=== PATIENT | female | born 1985 | race Caucasian/White ===

== ENCOUNTER 2018-08-19 18:27 | Emergency (ER) | payer SELFPAY | END 2018-08-19 20:54 | disposition home or self-care (01) | LOC: JERFT 18:27 ==

== ENCOUNTER 2018-08-22 18:30 | Inpatient (IN) | payer MEDICARE ==
--- NOTE | 2018-08-22 18:36 | PDOC ---
Rapid Medical Evaluation Time Seen by Provider: 08/22/18 18:35 Medical Evaluation: Allergies Allergy/AdvReac Type Severity Reaction Status Date / Time No Known Allergies Allergy Verified 08/19/18 18:44 08/22/18 18:35 I have performed a brief in-person evaluation of this patient. The patient presents with a chief complaint of: Wound check . She was seen in ED for R nipple discharge/infection, was given a Rx for clindamycin which she has been taking but she still c/o discharge and feels like the swelling is getting worse, redness is also spreading. She was unable to follow up with her OBGYN as recommended. NO fever/chills/vomiting Pertinent physical exam findings: AAO X 3 in NAD I have ordered the following: none The patient will proceed to the ED for further evaluation. 08/22/18 18:37
[2018-08-22] MEDS ORDERED: KETOROLAC TROMETHAMINE 30 MG/1 ML VIAL ONE (19:22)
[2018-08-22] MEDS ORDERED: KETOROLAC TROMETHAMINE 30 MG/1 ML VIAL IVPUSH ONE (19:23)
--- NOTE | 2018-08-22 19:30 | PDOC ---
History of Present Illness - General Chief Complaint: Wound Stated Complaint: F/U Time Seen by Provider: 08/22/18 18:35 History Source: Patient Exam Limitations: No Limitations - History of Present Illness Initial Comments: 08/22/18 19:24 Patient returned after being on clindamycin for 2 days for bilateral breast abscess. Was evaluated 2 days ago in this emergency department for a left-sided breast that spread to her right breast/nipple. States had a history of cystitis a few years ago after a nipple piercing which when she removed the hardware and was placed on antibiotics resolved completely. States onset of her left breast pain swelling and purulent drainage started 4 days ago, spread to the right breast 2 days ago where she was evaluated. States since that time has taken approximately 6 doses of clindamycin as prescribed but has a worsening pain, redness and discharge from both nipples. Denies recent trauma, denies any aggressive sexual activity, denies any recurrence of piercing. Has no history of immunosuppression and HIV testing negative one year ago. Timing/Duration: reports: getting worse Severity: Yes: moderate, severe Location: reports: other Respiratory Risk Factors: reports: no cause identified (bilateral area left and nipples) Past History - Travel Traveled outside of the country in the last 30 days: No Close contact w/someone who was outside of country & ill: No - Past Medical History Allergies/Adverse Reactions: Allergies Allergy/AdvReac Type Severity Reaction Status Date / Time No Known Allergies Allergy Verified 08/22/18 18:36 Home Medications: Ambulatory Orders Clindamycin [Cleocin -] 300 mg PO TID #30 capsule 08/19/18 COPD: No - Surgical History GI Surgery: No - Immunization History Immunization Up to Date: No - Suicide/Smoking/Psychosocial Hx Smoking History: Never smoked Have you smoked in the past 12 months: No Hx Alcohol Use: Yes Drug/Substance Use Hx: No Review of Systems - Review of Systems Able to Perform ROS?: Yes Is the patient limited Macedonian proficient: Yes Constitutional: Yes: Symptoms Reported, See HPI, Chills, Loss of Appetite, Malaise HEENTM: Yes: See HPI. No: Symptoms Reported Respiratory: Yes: See HPI. No: Symptoms reported, Cough Musculoskeletal: Yes: See HPI. No: Symptoms Reported Integumentary: Yes: Symptoms Reported, See HPI, Erythema, Lesions All Other Systems: Reviewed and Negative *Physical Exam - Vital Signs Last Vital Signs Temp Pulse Resp BP Pulse Ox 98.9 F 71 20 113/60 99 08/22/18 18:37 08/22/18 18:37 08/22/18 18:37 08/22/18 18:37 08/22/18 18:37 - Physical Exam General Appearance: Yes: Nourished, Appropriately Dressed, Apparent Distress, Moderate Distress, Severe Distress HEENT: positive: NATHANAEL, Normal ENT Inspection, TMs Normal, Pharynx Normal Neck: positive: Supple. negative: Tender, Lymphadenopathy (R), Lymphadenopathy (L) Respiratory/Chest: positive: Lungs Clear, Normal Breath Sounds, Other (left nipple tender with purulent drainage expressed from old piercing sites midpoint nipple with erythema around area LOC. Right breast has a 15 cm erythema with exquisite tenderness to nipple that is inverted. Has some orange peeling skin, and firmness primarily to the medial aspect upper and lower quadrants of right breast) Gastrointestinal/Abdominal: positive: Soft. negative: Tender Extremity: positive: Normal Capillary Refill, Normal Inspection, Normal Range of Motion Integumentary: positive: Erythema. 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 Case was discussed with , turned over Doug Acuna PA who will proceed for admission for IVAbx. Patient and boyfriend updated to plan, and provided Toradol IV for some pain relief *DC/Admit/Observation/Transfer Diagnosis at time of Disposition: Breast abscess - Discharge Dispostion Condition at time of disposition: Stable Decision to Admit order: No - Referrals - Patient Instructions - Post Discharge Activity
[2018-08-22] MEDS ORDERED: VANCOMYCIN 1 GM in D5W (PRE-DOCKED) 1,000 MG/250 ML IVPB ONE (19:42)
[2018-08-22 19:53] LABS: BASO % 0.7 % (0-2.0); EOS % 1.2 % (0-4.5); HEMATOCRIT 38.9 % (32.4-45.2); HEMOGLOBIN 12.8 GM/dL (10.7-15.3); LYMPH % 22.1 % (8-40); MCH 30.7 pg (25.7-33.7); MONO % 5.6 % (3.8-10.2); NEUT % 70.4 % (42.8-82.8); RBC 4.18 M/mm3 (3.60-5.2); RDW 12.9 % (11.6-15.6); WHITE BLOOD COUNT 13.3 K/mm3 (4.0-10.0)
[2018-08-22 20:13] LABS: URINE APPEARANCE CLEAR; URINE BILIRUBIN NEGATIVE (NEGATIVE); URINE COLOR YELLOW; URINE GLUCOSE (UA) NEGATIVE (NEGATIVE); URINE KETONE NEGATIVE (NEGATIVE); URINE LEUK ESTERASE NEGATIVE (NEGATIVE); URINE NITRITE NEGATIVE (NEGATIVE); URINE PROTEIN NEGATIVE (NEGATIVE); URINE UROBILINOGEN 0.2 mg/dL (0.2-1.0)
[2018-08-22 20:18] LABS: ALBUMIN 4.1 g/dl (3.4-5.0); BILIRUBIN,TOTAL 0.2 mg/dL (0.2-1); CREATININE 0.7 mg/dL (0.55-1.3); TOT PROT 7.1 g/dl (6.4-8.2)
--- NOTE | 2018-08-22 20:20 | PDOC ---
*Physical Exam - Vital Signs Last Vital Signs Temp Pulse Resp BP Pulse Ox 98.9 F 71 20 113/60 99 08/22/18 18:37 08/22/18 18:37 08/22/18 18:37 08/22/18 18:37 08/22/18 18:37 - Physical Exam Comments: R breast with induration and swelling around nipple with erythema and nipple; induration measures approximately 4x4 cm; no obvious fluctuance site noted; no drainage noted; R nipple is inverted L breast nipple with around 2x2 cm area of induration, no erythema noted, no fluctuance noted, L nipple is not inverted 08/22/18 20:15 General Appearance: No: Apparent Distress Respiratory/Chest: positive: Lungs Clear, Normal Breath Sounds. negative: Respiratory Distress Gastrointestinal/Abdominal: positive: Normal Bowel Sounds, Soft. negative: Tender, Distended, Guarding, Rebound Neurologic: positive: Alert, Normal Mood/Affect ED Treatment Course - LABORATORY CBC & Chemistry Diagram: 08/22/18 19:25 08/22/18 19:15 - ADDITIONAL ORDERS Additional order review: 08/22/18 19:25 RBC 4.18 MCV 93.0 MCHC 33.0 RDW 12.9 MPV 12.0 H Neutrophils % 70.4 Lymphocytes % 22.1 Monocytes % 5.6 Eosinophils % 1.2 Basophils % 0.7 - Medications Given in the ED: ED Medications Discontinued Medications Generic Name Dose Route Start Last Admin Trade Name Freq PRN Reason Stop Dose Admin Ketorolac Tromethamine 30 mg 08/22/18 19:23 08/22/18 19:43 Toradol Injection - IVPUSH 08/22/18 19:24 30 mg ONCE ONE Administration Medical Decision Making - Medical Decision Making Patient signed out to me by ANDIE Wylie 32 y/o F with no sig pmh presents with L nipple discharge x 1 week and R breast swelling and pain from 4 days ago. Patient was seen here 3 days ago, diagnosed with B/L mastitis and discharged on Clindamycin. Patient returned to ED as states the swelling of R breast and discharge from L nipple getting worse despite use of antibiotics. Mentions having R breast piercing around 10 years ago and developing something similar; her piercing was removed at the time and states her R nipple has been inverted since her 20s. Patient mentions smoking marijuana and was former smoker (quit 4 years ago; started smoking age 13 and could smoke up to 1/2 ppd). Denies fever, sob, cp. Concern for B/L breast abscess Labs, Vanc, blood culture; unable to collect wound culture at this time as no drainage was expressed from nipple B/L breast ultrasound To admit 08/22/18 20:16 Spoke to radiologist, Dr. Hauser, who confirms patient has B/L breast abscesses (around 3-4 cm fluid collection in both breasts noted) Hospitalist paged for admission 08/22/18 20:51 *DC/Admit/Observation/Transfer Diagnosis at time of Disposition: Breast abscess - Discharge Dispostion Condition at time of disposition: Stable Decision to Admit order: Yes - Referrals - Patient Instructions - Post Discharge Activity
[2018-08-22] MEDS ORDERED: VANCOMYCIN 1 GRAM (PRE-DOCKED) 1,000 MG/250 ML BAG IVPB ONE (20:46)
[2018-08-22 21:33] LABS: PLATELET COUNT 233 K/MM3 (134-434); PLATELET ESTIMATE ADEQUATE
--- NOTE | 2018-08-22 21:41 | PN ---
Teaching Attending Note Name of Resident: Emerson Pires ATTENDING PHYSICIAN STATEMENT I saw and evaluated the patient. I reviewed the resident's note and discussed the case with the resident. I agree with the resident's findings and plan as documented. SUBJECTIVE: Patient is a 32 year old woman with no significant PMH who returns to the ER after being on clindamycin for 2 days for bilateral breast abscess. Was evaluated on 08/19/18 in the ER for a left-sided breast pain and discharge that spread to her right breast/nipple. States had a nipple piercing which has sinc been removed. States onset of her left breast pain swelling and purulent drainage started 4 days ago, spread to the right breast 2 days ago where she was evaluated. States since that time has taken approximately 6 doses of clindamycin as prescribed but has a worsening pain, redness and discharge from both nipples. Denies recent trauma, denies any aggressive sexual activity, denies any recurrence of piercing. Has no history of immunosuppression and HIV testing negative one year ago. She denies any biting to the nipples during sexual activity. Patient does note she purchased a new bra from [employer] last week, which she has been wearing since before her presentation on 08/19/18. LMP was about 10 days ago and finished on 08/17. She is an exsmoker and use marijuana daily. Denies using anyother illicit drug. The patient denies chest pain, shortness of breath, headache and dizziness. Denies fever, chills, nausea, vomiting, diarrhea and constipation. Denies dysuria, frequency, urgency and hematuria. OBJECTIVE: Alert Vital Signs Period Temp Pulse Resp BP Sys/Meraz Pulse Ox Last 24 Hr 98.4 F-98.9 F 71-74 20-20 113-128/60-80 99 HEENT: No Jaundice, eye redness or discharge, PERRLA, EOMI. Normocephalic, atraumatic. External ears are normal and hearing is grossly intact. No nasal discharge. Neck: Supple, nontender. No palpable adenopathy or thyromegaly. No JVD Chest: Good effort. Bilateral luca nipple erythema/induration and fluctuance and tenderness. Clear to auscultation and percussion. Heart: Regular. No S3, rub or murmur Abdomen: Not distended, soft, nontender and no HSM. No rebound or guarding. Normal bowel sounds. Ext: Peripheral pulses intact. No leg edema. Skin: Warm and dry. No petechiae, rash or ecchymosis. Neuro: Alert. Oriented x3. CN 2-12 grossly intact. Sensation grossly intact in all four extremities and DTR are symmetric. Psych: Appropriate mood and affect. Good insight. Current Medications Generic Name Dose Route Start Last Admin Trade Name Freq PRN Reason Stop Dose Admin Sodium Chloride 1,000 mls @ 75 mls/hr 08/22/18 22:30 Normal Saline - IV ASDIR KORTNEY Vancomycin HCl 1,000 mg 08/23/18 03:00 Vancomycin (Pre-Docked) IVPB 08/23/18 03:01 ONCE ONE Protocol Home Medications Medication Instructions Recorded Clindamycin [Cleocin -] 300 mg PO TID #30 capsule 08/19/18 Abnormal Lab Results 08/22/18 08/22/18 19:15 19:25 WBC 13.3 H MPV 12.0 H Absolute Neuts (auto) 9.4 H Random Glucose 113 H AST 10 L ASSESSMENT AND PLAN: 1. Bilateral breast abscess and cellulitis - No obvious risk factor. Preliminary report of ultrasound shows bilateral breast abscesses. Blood cultures being done and will give IV vancomycin and consult surgery. Will send for urine toxicology screen and swab nipple discharge for culture. Give IV NS and liberal oral fluids. NPO after midnight. Counseled to stop smoking marijuana. 2. Overweight Counseled on the risks associated with being overweight. Will provide patient all the necessary assistance, counseling and positive reinforcement to facilitate weight loss. Consult distribution driver. 3. DVT prophylaxis - SCD for now and after Procedure use Lovenox 40 mg SQ q 24 hours. 4. Advance directives - Full code
[2018-08-22] MEDS ORDERED: HEPARIN NA (PORCINE) 5,000 UNITS/ML 1ML VIAL SQ ONE (22:27)
[2018-08-22 22:39] VITALS: BMI 28.8
--- NOTE | 2018-08-22 23:03 | HP ---
CHIEF COMPLAINT: worsening breast swelling, tenderness and erythema PCP: None HISTORY OF PRESENT ILLNESS: Pt. is a 32 y.o. F w/ no PMHx. presents with bilateral breast tenderness and swelling. Pt. states that the left breast swelling and tenderness started on Sunday, however the right breast erythema, swelling and tenderness started about 1 week go. Pt. was recently seen in the ED on Sunday for this problem and was discharged on a 10 day course of Clindamycin with instructions to follow up with her ADMINISTRATIVE TECHNICIAN. Pt. does not have an ADMINISTRATIVE TECHNICIAN, and states she has never had a mammogram. Pt. states that her right nipple has been inverted since her early 20s. She got a nipple piercing in an attempt to jhonathan the nipple, however developed an infection and took out the piercing. in the distant past. Pt. states that since starting the Clindamycin the tenderness, erythema and swelling has worsened. Pt. endorses decreased appetite for a week, Lightheadedness and headache starting today. Pt. states that sometimes there is white/yellowish discharge from the left nipple. Pt. denies any trauma to her breast, poor hygiene with bras, any aggressive activity sexual or otherwise with her breasts or any sick contacts. Pt. denies any fever, chills, chest pain other than from her breasts, nausea, vomiting, diarrhea or rashes anywhere. Pt. states her last HIV test last year was negative and that she is monogamous with her boyfriend who was present in the room throughout the encounter. ER course was notable for: (1)Vancomycin, BCx., WCx.-ordered (2)UTox., ID Consult, Surgery Consult (3)Toradol 30mg, Breast U.S. Recent Travel: No PAST MEDICAL HISTORY: None PAST SURGICAL HISTORY: None Social History: Smokin/ PPD - 15 years; Quit 3 years ago Alcohol: Drinks 1 "big bottle" every weekend with boyfriend Drugs: Marijuana daily x 10+ years, denies other drugs Family History: Denies any family history of breast cancer Allergies No Known Allergies Allergy (Verified 08/22/18 18:36) HOME MEDICATIONS: Home Medications Medication Instructions Recorded Clindamycin [Cleocin -] 300 mg PO TID #30 capsule 08/19/18 REVIEW OF SYSTEMS As Above PHYSICAL EXAMINATION Vital Signs - 24 hr 08/22/18 18:37 Temperature 98.9 F Pulse Rate 71 Respiratory 20 Rate Blood Pressure 113/60 O2 Sat by Pulse 99 Oximetry (%) GENERAL: Awake, alert, and fully oriented, in mild distress. HEAD: Normal with no signs of trauma. EYES: Extraocular movements intact, sclera anicteric, conjunctiva clear. EARS, NOSE, THROAT: Ears normal, nares patent, oropharynx clear without exudates. Dry mucous membranes. LUNGS: Breath sounds equal, clear to auscultation bilaterally. No wheezes, and no crackles. No accessory muscle use. BREAST: R. nipple inverted, fluctuance, tenderness, no discharge, erythema ~5cm x 3 cm; L. nipple enlarged w/ scant discharge, fluctuance, tenderness, minimal erythema compared to R. HEART: Regular rate and rhythm, normal S1 and S2 without murmur ABDOMEN: Soft, nontender, not distended, normoactive bowel sounds, no guarding, no rebound, no masses. No hepatomegaly or splenomegaly. UPPER EXTREMITIES: 2+ radial pulses, warm, well-perfused. No cyanosis. No clubbing. No peripheral edema. LOWER EXTREMITIES: Warm, well-perfused. No peripheral edema. NEUROLOGICAL: Cranial nerves II-XII intact. Normal speech. Gait not assessed. PSYCHIATRIC: Cooperative. Good eye contact. Anxious SKIN: Warm, dry, normal turgor, no rashes or lesions noted Laboratory Results - last 24 hr 08/22/18 08/22/18 08/22/18 19:15 19:16 19:25 WBC 13.3 H RBC 4.18 Hgb 12.8 Hct 38.9 MCV 93.0 MCH 30.7 MCHC 33.0 RDW 12.9 Plt Count 233 MPV 12.0 H Absolute Neuts (auto) 9.4 H Neutrophils % 70.4 Lymphocytes % 22.1 Monocytes % 5.6 Eosinophils % 1.2 Basophils % 0.7 Nucleated RBC % 0 Platelet Estimate Adequate Platelet Comment Large platelets Sodium 137 Potassium 4.0 Chloride 105 Carbon Dioxide 24 Anion Gap 8 BUN 10 Creatinine 0.7 Est GFR (CKD-EPI)AfAm 131.94 Est GFR (CKD-EPI)NonAf 113.84 Random Glucose 113 H Calcium 9.0 Total Bilirubin 0.2 AST 10 L ALT 23 Alkaline Phosphatase 75 Total Protein 7.1 Albumin 4.1 Urine Color Urine Appearance Urine pH Ur Specific [place] Urine Protein Urine Glucose (UA) Urine Ketones Urine Blood Urine Nitrite Urine Bilirubin Urine Urobilinogen Ur Leukocyte Esterase Urine HCG, Qual Negative 08/22/18 19:29 WBC RBC Hgb Hct MCV MCH MCHC RDW Plt Count MPV Absolute Neuts (auto) Neutrophils % Lymphocytes % Monocytes % Eosinophils % Basophils % Nucleated RBC % Platelet Estimate Platelet Comment Sodium Potassium Chloride Carbon Dioxide Anion Gap BUN Creatinine Est GFR (CKD-EPI)AfAm Est GFR (CKD-EPI)NonAf Random Glucose Calcium Total Bilirubin AST ALT Alkaline Phosphatase Total Protein Albumin Urine Color Yellow Urine Appearance Clear Urine pH 5.0 Ur Specific [place] 1.027 Urine Protein Negative Urine Glucose (UA) Negative Urine Ketones Negative Urine Blood Negative Urine Nitrite Negative Urine Bilirubin Negative Urine Urobilinogen 0.2 Ur Leukocyte Esterase Negative Urine HCG, Qual ASSESSMENT/PLAN: Pt. is a 32 y.o. F w/ no PMHx. presents with bilateral breast tenderness and swelling. #Bilateral Mastitis with suspected bilateral abscesses c/w Vancomycin, per uptodate Pt. should receive 1g Q8H, and then have dose adjusted to maintain trough concentrations of 10-15. Will c/w Clindamycin at this time b/c of retracted nipple (though it was present before this process began) ID Consult (Dr. Murphy) appreciated Surgery Consult (Dr. Castillo) appreciated f/u Utox--> extremely rare to have b/l breast abscesses in Pt. not know to be IVDA. If negative my be due to ductal obstruction. However it is unusual that this is the first presentation. [place] structural abnormality causing nipple inversion supports obstructive process. Would benefit from outpatient f/u with ADMINISTRATIVE TECHNICIAN and mammogram. #FEN NS @ 75ml/Hr monitor electrolytes and replete as needed Regular Diet #DVT Ppx. Early ambulation Will give ONE does of Heparin in case of possible intervention in AM. Visit type - Emergency Visit Emergency Visit: Yes ED Registration Date: 08/22/18 Care time: The patient presented to the Emergency Department on the above date and was hospitalized for further evaluation of their emergent condition. - New Patient This patient is new to me today: Yes Date on this admission: 08/23/18 - Critical Care Critical Care patient: No
[2018-08-22] MEDS: CLINDAMYCIN HCL 150 MG CAPSULE (FP) PO SCH (23:33)
[2018-08-23 00:07] LABS: COCAINE, UR NEGATIVE ng/ml (CUTOFF=300); METHADONE, UR NEGATIVE ng/ml (CUTOFF=300); PHENCYCLIDINE,URINE NEGATIVE ng/ml (CUTOFF=25); URINE AMPHETAMINES NEGATIVE ng/ml (CUTOFF=500); URINE BARBITURATES NEGATIVE ng/ml (CUTOFF=200); URINE BENZODIAZEPINES NEGATIVE ng/ml (CUTOFF=200)
[2018-08-23 00:08] LABS: OPIATES, URI NEGATIVE ng/ml (CUTOFF=300)
[2018-08-23] MEDS ORDERED: VANCOMYCIN 1 GM in D5W (PRE-DOCKED) 1,000 MG/250 ML IVPB ONE (03:00)
[2018-08-23] MEDS: SODIUM CHLORIDE 1,000 ML IV SCH (04:07)
[2018-08-23] MEDS ORDERED: MORPHINE SULFATE 2 MG/ML VIAL SQ ONE (04:30)
[2018-08-23] MEDS: CLINDAMYCIN HCL 150 MG CAPSULE (FP) PO SCH (06:24)
[2018-08-23 07:19] LABS: BASO % 0.8 % (0-2.0); EOS % 2.1 % (0-4.5); HEMATOCRIT 36.6 % (32.4-45.2); HEMOGLOBIN 12.1 GM/dL (10.7-15.3); LYMPH % 24.5 % (8-40); MCH 30.8 pg (25.7-33.7); MEAN CELL VOLUME 93.4 fl (80-96); MEAN PLT VOLUME 11.5 fl (7.5-11.1); MONO % 7.3 % (3.8-10.2); NEUT % 65.3 % (42.8-82.8); PLATELET COUNT 220 K/MM3 (134-434); RBC 3.92 M/mm3 (3.60-5.2); RDW 12.9 % (11.6-15.6); WHITE BLOOD COUNT 9.6 K/mm3 (4.0-10.0)
[2018-08-23 07:41] LABS: INR 1.11 (0.83-1.09); PROTHROMBIN TIME (PATIENT) 13.1 SEC (9.7-13.0)
[2018-08-23 08:30] LABS: CALCIUM 8.5 mg/dL (8.5-10.1); CREATININE 0.6 mg/dL (0.55-1.3); MAGNESIUM 2.1 mg/dL (1.8-2.4); PHOSPHOROUS 3.7 mg/dL (2.5-4.9); POTASSIUM 4.2 mmol/L (3.5-5.1)
[2018-08-23] MEDS ORDERED: SODIUM CHLORIDE 100 ML IVPB ONE ×3 (10:13→20:04)
[2018-08-23] MEDS ORDERED: AMPICILLIN NA/SULBACTAM NA 1.5 GM VIAL ONE ×3 (10:13→20:04)
[2018-08-23] MEDS: AMPICILLIN NA/SULBACTAM NA 1.5 GM in SODIUM CHLORIDE 100 ML IVPB SCH ×3 (10:16→20:10)
--- NOTE | 2018-08-23 10:38 | CON.ID ---
Consult Consult Specialty:: infectious disease Referred by:: hospitalist Reason for Consultation:: bilateral breast abscess - History of Present Illness Chief Complaint: 32 yo female other arias healthy developed bilateral breast pain last week History of Present Illness: Seen in ED at [facility] with drainage from her nipple- reports she had bilateral breast pain left greater then right has inverted nipple right breast (chronic) started clindamycin 300 tid no improvement and came to ED breast ultrasound with bilateral breast abscess below areola no fevers no IVDU not not nursing no trauma nipple piercing in 10 years ago had an infection that resolved HIV negative one year ago- agreeable to retesting reports new "tight "bra 2 weeks ago - History Source History Provided By: Patient Limitations to Obtaining History: No Limitations - Past Medical History Reproductive: Yes: PID (in her mid 20s, mastitis secondary to nipple piercing 10 years ago) ...LMP: 08/17/18 ...: No - Alcohol/Substance Use Hx Alcohol Use: Yes History of Substance Use: reports: None - Smoking History Smoking history: Never smoked Have you smoked in the past 12 months: No If you are a former smoker, when did you quit?: 2015 - Social History Usual Living Arrangement: Alone ADL: Independent Occupation: works for [employer] of : [facility] History of Recent Travel: No Home Medications - Allergies Allergies/Adverse Reactions: Allergies Allergy/AdvReac Type Severity Reaction Status Date / Time No Known Allergies Allergy Verified 08/22/18 18:36 - Home Medications Home Medications: Ambulatory Orders Clindamycin [Cleocin -] 300 mg PO TID #30 capsule 08/19/18 Family Disease History - Family Disease History Family History: Denies (no hstory of breast cancer) Review of Systems - Review of Systems Constitutional: reports: No Symptoms Eyes: reports: No Symptoms HENT: reports: No Symptoms Neck: reports: No Symptoms Cardiovascular: reports: No Symptoms Respiratory: reports: No Symptoms Gastrointestinal: reports: No Symptoms Genitourinary: reports: No Symptoms Breasts: reports: See HPI Physical Exam Vital Signs: Vital Signs Temperature 98.6 F 08/23/18 06:00 Pulse Rate 64 08/23/18 06:00 Respiratory Rate 20 08/23/18 06:00 Blood Pressure 103/59 L 08/23/18 06:00 O2 Sat by Pulse Oximetry (%) 99 08/22/18 18:37 Constitutional: Yes: Well Nourished, No Distress, Calm Eyes: Yes: Conjunctiva Clear HENT: Yes: Atraumatic, Normocephalic. No: Thrush, Tonsillar Exudate Neck: Yes: Supple, Trachea Midline Cardiovascular: Yes: Regular Rate and Rhythm. No: Murmur Respiratory: Yes: Regular, CTA Bilaterally Gastrointestinal: Yes: Normal Bowel Sounds, Soft. No: Tenderness ...Rectal Exam: Yes: Deferred Renal/: No: CVA Tenderness - Left, CVA Tenderness - Right Breast(s): Yes: Nipple Inversion (right, erythema and tenderness right breast with palpable mass below areola, left breast no erythema, +induration, + purulent discharge from nipple) Edema: No Psychiatric: Yes: Alert, Oriented Labs: CBC, BMP 08/23/18 06:36 08/23/18 06:39 Imaging - Results Ultrasound: Report Reviewed (bilateral abscesses below the areola) Problem List - Problems (1) Breast abscess Code(s): N61.1 - ABSCESS OF THE BREAST AND NIPPLE Assessment/Plan bilateral breast abscess left breast discharge cultures d/w dr dietrich- he will be in to see patient vancomycin/unasyn, needs cultures sent when abscess is drained hiv ordered (she consents) d/w hospitalist service
[2018-08-23] MEDS ORDERED: LIDOCAINE HCL 1%, 10 MG/ML (50 mL VIAL) SQ ONE (14:27)
--- NOTE | 2018-08-23 14:37 | CONSULT ---
Consult Consult Specialty:: Surgery Reason for Consultation:: Bilateral breast abscess. - History of Present Illness Chief Complaint: C/P pain in both breasts for one week, right more than left. She is not lactating. She has had an abscess on her right breast about 10 years ago. - History Source History Provided By: Patient - Past Medical History ...LMP: 08/17/18 ...: No - Alcohol/Substance Use Hx Alcohol Use: Yes History of Substance Use: reports: None - Smoking History Smoking history: Never smoked Have you smoked in the past 12 months: No If you are a former smoker, when did you quit?: 2014 - Social History Usual Living Arrangement: Alone ADL: Independent Occupation: works for [employer] History of Recent Travel: No Home Medications - Allergies Allergies/Adverse Reactions: Allergies Allergy/AdvReac Type Severity Reaction Status Date / Time No Known Allergies Allergy Verified 08/22/18 18:36 - Home Medications Home Medications: Ambulatory Orders Clindamycin [Cleocin -] 300 mg PO TID #30 capsule 08/19/18 Physical Exam Vital Signs: Vital Signs Temperature 98.6 F 08/23/18 06:00 Pulse Rate 64 08/23/18 06:00 Respiratory Rate 20 08/23/18 06:00 Blood Pressure 103/59 L 08/23/18 06:00 O2 Sat by Pulse Oximetry (%) 99 08/22/18 18:37 Breast(s): Yes: Other (Both breasts are tender at the center, with induration , pain and swelling in the central portion of the breasts , under the nipple areola complex. On the left side it is about 5 cms in daimeter , with some purulent exudate from the nipple. On her right breast , there is some necrosis of the skin over the medial side of the areola, and swelling and induration extends to the upper , inner quadrant. There is no axillary lymphadenopathy.) Labs: CBC, BMP 08/23/18 06:36 08/23/18 06:39 Imaging - Results Ultrasound: Report Reviewed, Image Reviewed Problem List - Problems (1) Breast abscess Code(s): N61.1 - ABSCESS OF THE BREAST AND NIPPLE (2) Nipple discharge Code(s): N64.52 - NIPPLE DISCHARGE Assessment/Plan Bilateral breast abscess, with drainage from nipple, Plan : Aspiration / Incision and drainage of abscess, on both sides. Patient is informed. Antibiotics. Pus for culture and antibiotic sensitivity. Patient is explained. Consent obtained.
--- NOTE | 2018-08-23 15:28 | PROC ---
Procedure Note Procedure: Procedure note: Procedure : Bilateral incision and drainage of breast abscesses done. Anesthesia : Local with 1 % lidocaine in each breast Procedure : patient was explained the procedure. 5ml. of 1 % lidocaine was infiltrated into the skin and subcutaneous tissue , in each breast , beneath ate areola of each breast , at the point of maximum tenderness. Left breast : A no. 18 gauge needle was introduced on the lateral aspect of the left breast , at the area of maximum tenderness and induration. About 2-3 mo of purulent material was aspirated. With a no. 11 blade , a skin incision of about 1-2 cms was made , towards the cavity of pus. The wound and cavity was irrigated ans pcaked with 2x2 gauze and dressed. The pus was sent for cultue and antibiotic sensitivity. Right breast: 1 % lidocaine was infiltrates on the medial aspect of the areola , at the site of maximum induration and tenderness. the nipple on the right side is inverted due to the edema and swelling. Again a no. 18 gauge needle was introduced and about 8 ml of pus was aspirated. With a no. 11 blade Bard Mateus blade a 2-3 cm incision was made on the medial aspect of the areola, the cavity was enterd , pus and debris evacuated , cavity irrigated with normal saline , and packed with 2x2 gauze. pus was again sent for culture and antibiotic sensitivity. Dressing applied. patient tolerated the procedure.
[2018-08-23] MEDS ORDERED: HYDROmorphone HCl 2 MG/ML VIAL IM PRN (15:30)
[2018-08-23] MEDS: VANCOMYCIN 1 GRAM (PRE-DOCKED) 1,000 MG/250 ML BAG IVPB SCH (15:52)
--- NOTE | 2018-08-23 16:23 | PN ---
Physical Exam: SUBJECTIVE: Patient seen and examined at bedside. Complains of persistent b/l breast tenderness but no drainage noted. Denies cp, sob, abd pain, urinary/ bowel symptoms. OBJECTIVE: Vital Signs Period Temp Pulse Resp BP Sys/Meraz Pulse Ox Last 24 Hr 98.4 F-98.9 F 64-74 20-20 103-128/59-80 99 GENERAL: Well-appearing female. resting comfortably in bed. AAOx3. NAD. HEENT: AT/NC. EOMI. Moist mucus membranes. NECK: Trachea midline, full range of motion, supple. LUNGS: CTA B/L. No wheezes, rhonchi, rales noted. BREAST: Right- inverted nipple, indurated periareolar region with erythema, tender to touch, no expressible drainage from nipple, area of redness demarcated around nipple, appears to be improved from demarcation. Left- area of induration palpated around areola region, no expressible drainage from nipple , no erythema noted. HEART: Regular rate and rhythm, S1, S2 without murmur, rub or gallop. ABDOMEN: Soft, NT/ND. +BS EXTREMITIES: 2+ pulses, warm, well-perfused, no edema. CBCD WBC 9.6 K/mm3 (4.0-10.0) 08/23/18 06:36 RBC 3.92 M/mm3 (3.60-5.2) 08/23/18 06:36 Hgb 12.1 GM/dL (10.7-15.3) 08/23/18 06:36 Hct 36.6 % (32.4-45.2) 08/23/18 06:36 MCV 93.4 fl (80-96) 08/23/18 06:36 MCHC 33.0 g/dl (32.0-36.0) 08/23/18 06:36 RDW 12.9 % (11.6-15.6) 08/23/18 06:36 Plt Count 220 K/MM3 (134-434) 08/23/18 06:36 MPV 11.5 fl (7.5-11.1) H 08/23/18 06:36 CMP Sodium 138 mmol/L (136-145) 08/23/18 06:39 Potassium 4.2 mmol/L (3.5-5.1) 08/23/18 06:39 Chloride 108 mmol/L (98-107) H 08/23/18 06:39 Carbon Dioxide 22 mmol/L (21-32) 08/23/18 06:39 Anion Gap 9 MMOL/L (8-16) 08/23/18 06:39 BUN 10 mg/dL (7-18) 08/23/18 06:39 Creatinine 0.6 mg/dL (0.55-1.3) 08/23/18 06:39 Calcium 8.5 mg/dL (8.5-10.1) 08/23/18 06:39 Total Bilirubin 0.2 mg/dL (0.2-1) 08/22/18 19:15 AST 10 U/L (15-37) L 08/22/18 19:15 ALT 23 U/L (13-61) 08/22/18 19:15 Alkaline Phosphatase 75 U/L (45-117) 08/22/18 19:15 Total Protein 7.1 g/dl (6.4-8.2) 08/22/18 19:15 Albumin 4.1 g/dl (3.4-5.0) 08/22/18 19:15 Active Medications Hydromorphone HCl (Dilaudid Vial -) 2 mg IM Q8H PRN PRN Reason: PAIN LEVEL 6-10 Last Admin: 08/23/18 15:50 Dose: 2 mg Sodium Chloride (Normal Saline -) 1,000 mls @ 75 mls/hr IV ASDIR KORTNEY Last Admin: 08/23/18 04:07 Dose: 75 mls/hr Ampicillin Sodium/Sulbactam (Sodium 1.5 gm/ Sodium Chloride) 100 mls @ 200 mls/ hr IVPB Q6H-IV KORTNEY Last Admin: 08/23/18 15:52 Dose: 200 mls/hr Vancomycin HCl (Vancomycin (Pre-Docked)) 1,000 mg in 250 mls @ 166.667 mls/hr IVPB Q12H KORTNEY; Protocol Last Admin: 08/23/18 15:52 Dose: 166.667 mls/hr IMAGING: * Breast U/S: Complex fluid collection within retreareolar portions of both breasts suspicious for abscesses, in light of clinical hx of purulent nipple discharge. BI-RADS 4: Suspicious finding- biopsy should be considered. ASSESSMENT/PLAN: Pt is a 32 y.o. F w/ no PMHx. presents with bilateral breast tenderness and swelling found to have b/l breast abscesses. #Bilateral Mastitis with Abscesses and Cellulitis -Breast U/S noted above; remarkable for bilateral complex collections/abscesses -s/p I and D by Surgery, Surgical Cx pending -Leukocytosis resolving -Seen by ID - Continue Unasyn/Vancomycin pending Cx results -IV Fluids -Analagesia #DVT Ppx - Heparin SQ Dispo -cont to monitor on med-surg -full code Visit type - Emergency Visit Emergency Visit: Yes ED Registration Date: 08/22/18 Care time: The patient presented to the Emergency Department on the above date and was hospitalized for further evaluation of their emergent condition. - New Patient This patient is new to me today: Yes Date on this admission: 08/23/18 - Critical Care Critical Care patient: No
--- NOTE | 2018-08-23 17:27 | PN ---
Teaching Attending Note Name of Resident: Ofelia Gallardo (\) ATTENDING PHYSICIAN STATEMENT I saw and evaluated the patient. I reviewed the resident's note and discussed the case with the resident. I agree with the resident's findings and plan as documented. SUBJECTIVE: Complains of bilateral breast pain/swelling/tenderness. Erythema R breast, discharge L nipple. No fever/chills. No nausea/vomiting. OBJECTIVE: Afebrile, Hemodynamically Stable. Last Vital Signs Temp Pulse Resp BP Pulse Ox 98.6 F 64 20 103/59 L 99 08/23/18 06:00 08/23/18 06:00 08/23/18 06:00 08/23/18 06:00 08/22/18 18:37 HEENT- Atraumatic, Normocephalic. Heart - S1, S2, RRR Lungs - clear to auscultation Breast (examined with medical team as planning rn) - R side tender/erythematous, fluctuant luca-areolar area, L side also swollen and tedner with everted nipple , some discharge. Abdomen - Soft, non-tender. Bowel Sounds normal. Extremities - no edema, no calf tenderness. Laboratory Results - last 24 hr 08/22/18 08/22/18 08/22/18 19:15 19:16 19:25 WBC 13.3 H RBC 4.18 Hgb 12.8 Hct 38.9 MCV 93.0 MCH 30.7 MCHC 33.0 RDW 12.9 Plt Count 233 MPV 12.0 H Absolute Neuts (auto) 9.4 H Neutrophils % 70.4 Lymphocytes % 22.1 Monocytes % 5.6 Eosinophils % 1.2 Basophils % 0.7 Nucleated RBC % 0 Platelet Estimate Adequate Platelet Comment Large platelets PT with INR INR Sodium 137 Potassium 4.0 Chloride 105 Carbon Dioxide 24 Anion Gap 8 BUN 10 Creatinine 0.7 Est GFR (CKD-EPI)AfAm 131.94 Est GFR (CKD-EPI)NonAf 113.84 Random Glucose 113 H Calcium 9.0 Phosphorus Magnesium Total Bilirubin 0.2 AST 10 L ALT 23 Alkaline Phosphatase 75 Total Protein 7.1 Albumin 4.1 Urine Color Urine Appearance Urine pH Ur Specific Sparks Urine Protein Urine Glucose (UA) Urine Ketones Urine Blood Urine Nitrite Urine Bilirubin Urine Urobilinogen Ur Leukocyte Esterase Urine HCG, Qual Negative Opiates Screen Methadone Screen Barbiturate Screen Phencyclidine Screen Ur Amphetamines Screen MDMA (Ecstasy) Screen Benzodiazepines Screen Cocaine Screen U Marijuana (THC) Screen Blood Type Antibody Screen 08/22/18 08/22/18 08/23/18 19:29 23:37 06:36 WBC 9.6 RBC 3.92 Hgb 12.1 Hct 36.6 MCV 93.4 MCH 30.8 MCHC 33.0 RDW 12.9 Plt Count 220 MPV 11.5 H Absolute Neuts (auto) 6.3 Neutrophils % 65.3 Lymphocytes % 24.5 Monocytes % 7.3 Eosinophils % 2.1 Basophils % 0.8 Nucleated RBC % 0 Platelet Estimate Platelet Comment PT with INR INR Sodium Potassium Chloride Carbon Dioxide Anion Gap BUN Creatinine Est GFR (CKD-EPI)AfAm Est GFR (CKD-EPI)NonAf Random Glucose Calcium Phosphorus Magnesium Total Bilirubin AST ALT Alkaline Phosphatase Total Protein Albumin Urine Color Yellow Urine Appearance Clear Urine pH 5.0 Ur Specific Sparks 1.027 Urine Protein Negative Urine Glucose (UA) Negative Urine Ketones Negative Urine Blood Negative Urine Nitrite Negative Urine Bilirubin Negative Urine Urobilinogen 0.2 Ur Leukocyte Esterase Negative Urine HCG, Qual Opiates Screen Negative Methadone Screen Negative Barbiturate Screen Negative Phencyclidine Screen Negative Ur Amphetamines Screen Negative MDMA (Ecstasy) Screen Negative Benzodiazepines Screen Negative Cocaine Screen Negative U Marijuana (THC) Screen Positive A* Blood Type Antibody Screen 08/23/18 08/23/18 08/23/18 06:36 06:36 06:39 WBC RBC Hgb Hct MCV MCH MCHC RDW Plt Count MPV Absolute Neuts (auto) Neutrophils % Lymphocytes % Monocytes % Eosinophils % Basophils % Nucleated RBC % Platelet Estimate Platelet Comment PT with INR 13.10 H INR 1.11 H Sodium 138 Potassium 4.2 Chloride 108 H Carbon Dioxide 22 Anion Gap 9 BUN 10 Creatinine 0.6 Est GFR (CKD-EPI)AfAm 138.80 Est GFR (CKD-EPI)NonAf 119.76 Random Glucose 98 Calcium 8.5 Phosphorus 3.7 Magnesium 2.1 Total Bilirubin AST ALT Alkaline Phosphatase Total Protein Albumin Urine Color Urine Appearance Urine pH Ur Specific Sparks Urine Protein Urine Glucose (UA) Urine Ketones Urine Blood Urine Nitrite Urine Bilirubin Urine Urobilinogen Ur Leukocyte Esterase Urine HCG, Qual Opiates Screen Methadone Screen Barbiturate Screen Phencyclidine Screen Ur Amphetamines Screen MDMA (Ecstasy) Screen Benzodiazepines Screen Cocaine Screen U Marijuana (THC) Screen Blood Type O POSITIVE Antibody Screen Negative 08/23/18 10:50 WBC RBC Hgb Hct MCV MCH MCHC RDW Plt Count MPV Absolute Neuts (auto) Neutrophils % Lymphocytes % Monocytes % Eosinophils % Basophils % Nucleated RBC % Platelet Estimate Platelet Comment PT with INR INR Sodium Potassium Chloride Carbon Dioxide Anion Gap BUN Creatinine Est GFR (CKD-EPI)AfAm Est GFR (CKD-EPI)NonAf Random Glucose Calcium Phosphorus Magnesium Total Bilirubin AST ALT Alkaline Phosphatase Total Protein Albumin Urine Color Urine Appearance Urine pH Ur Specific Sparks Urine Protein Urine Glucose (UA) Urine Ketones Urine Blood Urine Nitrite Urine Bilirubin Urine Urobilinogen Ur Leukocyte Esterase Urine HCG, Qual Opiates Screen Methadone Screen Barbiturate Screen Phencyclidine Screen Ur Amphetamines Screen MDMA (Ecstasy) Screen Benzodiazepines Screen Cocaine Screen U Marijuana (THC) Screen Blood Type O POSITIVE Antibody Screen Current Medications Generic Name Dose Route Start Last Admin Trade Name Freq PRN Reason Stop Dose Admin Hydromorphone HCl 2 mg 08/23/18 15:30 08/23/18 15:50 Dilaudid Vial - IM 2 mg Q8H PRN Administration PAIN LEVEL 6-10 Sodium Chloride 1,000 mls @ 75 mls/hr 08/22/18 22:30 08/23/18 04:07 Normal Saline - IV 75 mls/hr ASDIR KORTNEY Administration Ampicillin Sodium/Sulbactam 100 mls @ 200 mls/hr 08/23/18 10:00 08/23/18 15: 52 Sodium 1.5 gm/ Sodium Chloride IVPB 200 mls/hr Q6H-IV KORTNEY Administration Vancomycin HCl 1,000 mg in 250 mls @ 166.667 mls/hr 08/23/18 16:00 08/23/18 15:52 Vancomycin (Pre-Docked) IVPB 166.667 mls/hr Q12H KORTNEY Administration Protocol ASSESSMENT/PLAN: 32 year old female with no significant PMH presents with bilateral breast tenderness/swelling, L nipple discharge, R breast erythema. Bilateral Mastitis with Abscesses and Cellulitis. US Breast Axilla - bilateral complex collections/abscesses s/p I and D by Surgery, Surgical Cx pending. Leukocytosis resolving Seen by ID - Continue Unasyn/Vancomycin pending Cx results IV Fluids Analagesia DVT Px - Heparin SQ
[2018-08-24] MEDS ORDERED: AMPICILLIN NA/SULBACTAM NA 1.5 GM VIAL ONE ×4 (02:46→21:37)
[2018-08-24] MEDS ORDERED: SODIUM CHLORIDE 100 ML IVPB ONE ×4 (02:46→21:37)
[2018-08-24] MEDS: AMPICILLIN NA/SULBACTAM NA 1.5 GM in SODIUM CHLORIDE 100 ML IVPB SCH ×4 (03:21→22:10)
[2018-08-24] MEDS: VANCOMYCIN 1 GRAM (PRE-DOCKED) 1,000 MG/250 ML BAG IVPB SCH ×2 (03:56→17:19)
[2018-08-24 07:47] LABS: BASO % 0.7 % (0-2.0); EOS % 1.6 % (0-4.5); HEMATOCRIT 37.5 % (32.4-45.2); HEMOGLOBIN 12.4 GM/dL (10.7-15.3); LYMPH % 19.8 % (8-40); MCH 30.7 pg (25.7-33.7); MCHC 33.1 g/dl (32.0-36.0); MEAN CELL VOLUME 92.8 fl (80-96); MONO % 7.9 % (3.8-10.2); RBC 4.04 M/mm3 (3.60-5.2); RDW 12.8 % (11.6-15.6); WHITE BLOOD COUNT 9.8 K/mm3 (4.0-10.0)
[2018-08-24 08:09] LABS: BLOOD UREA NITROGEN 5.5 mg/dL (7-18); CALCIUM 8.9 mg/dL (8.5-10.1); CREATININE 0.6 mg/dL (0.55-1.3); MAGNESIUM 2.2 mg/dL (1.8-2.4); PHOSPHOROUS 3.9 mg/dL (2.5-4.9); POTASSIUM 4.4 mmol/L (3.5-5.1)
[2018-08-24] MEDS: SODIUM CHLORIDE 1,000 ML IV SCH (10:48)
--- NOTE | 2018-08-24 11:05 | PN ---
Physical Exam: SUBJECTIVE: Patient seen and examined at bedside. No acute events overnight. Vado nauseous overnight, however tolerating regular diet. No episodes of vomiting, f/c, cp, sob, abd pain, urinary/bowel symptoms. OBJECTIVE: Vital Signs Temperature 98.7 F 08/24/18 06:00 Pulse Rate 77 08/24/18 06:00 Respiratory Rate 20 08/24/18 06:00 Blood Pressure 99/52 L 08/24/18 06:00 O2 Sat by Pulse Oximetry (%) 99 08/22/18 18:37 GENERAL: Well-appearing female. resting comfortably in bed. AAOx3. NAD. HEENT: AT/NC. EOMI. Moist mucus membranes. NECK: Trachea midline, full range of motion, supple. LUNGS: CTA B/L. No wheezes, rhonchi, rales noted. BREAST: Right- drainage noted on dressing, intact and dry. Mild tenderness to palpation. Left- dressing c/d/i. HEART: Regular rate and rhythm, S1, S2 without murmur, rub or gallop. ABDOMEN: Soft, NT/ND. +BS EXTREMITIES: 2+ pulses, warm, well-perfused, no edema. CBC, BMP 08/24/18 06:45 08/24/18 06:45 Active Medications Hydromorphone HCl (Dilaudid Vial -) 2 mg IM Q8H PRN PRN Reason: PAIN LEVEL 6-10 Last Admin: 08/23/18 15:50 Dose: 2 mg Sodium Chloride (Normal Saline -) 1,000 mls @ 75 mls/hr IV ASDIR KORTNEY Last Admin: 08/24/18 10:48 Dose: Not Given Ampicillin Sodium/Sulbactam (Sodium 1.5 gm/ Sodium Chloride) 100 mls @ 200 mls/ hr IVPB Q6H-IV KORTNEY Last Admin: 08/24/18 10:47 Dose: 200 mls/hr Vancomycin HCl (Vancomycin (Pre-Docked)) 1,000 mg in 250 mls @ 166.667 mls/hr IVPB Q12H KORTNEY; Protocol Last Admin: 08/24/18 03:56 Dose: 166.667 mls/hr IMAGING: * Breast U/S: Complex fluid collection within retreareolar portions of both breasts suspicious for abscesses, in light of clinical hx of purulent nipple discharge. BI-RADS 4: Suspicious finding- biopsy should be considered. ASSESSMENT/PLAN: Pt is a 32 y.o. F w/ no PMHx. presents with bilateral breast tenderness and swelling found to have b/l breast abscesses. #Bilateral Mastitis with Abscesses and Cellulitis; s/p I&D by surgery (Dr. Castillo) -Breast U/S noted above; remarkable for bilateral complex collections/abscesses -f/u surg recs -Leukocytosis resolved. -Per ID, continue Unasyn 1.5 gm Q8H IVPB/Vancomycin 1gm Q12H pending Cx results ; HIV serology neg -BCx neg x24h, L breast cx neg 24h, R breast cx pending; repeat cultures sent after abscess drainage -cont IVf -pain control per surg; Dilaudid 2 mg Q8H IM PRN #DVT Ppx - Heparin SQ FEN -NS @ 75 -check lytes in AM -Regular diet Dispo -cont to monitor on med-surg -full code Visit type - Emergency Visit Emergency Visit: Yes ED Registration Date: 08/22/18 Care time: The patient presented to the Emergency Department on the above date and was hospitalized for further evaluation of their emergent condition. - New Patient This patient is new to me today: No - Critical Care Critical Care patient: No
[2018-08-24 12:27] LABS: PLATELET COUNT 334 K/MM3 (134-434)
--- NOTE | 2018-08-24 13:24 | PN ---
Teaching Attending Note Name of Resident: Ofelia Gallardo ATTENDING PHYSICIAN STATEMENT I saw and evaluated the patient. I reviewed the resident's note and discussed the case with the resident. I agree with the resident's findings and plan as documented. SUBJECTIVE: Bilateral breast pain/swelling/tenderness improving s/p I and D. No fever/chills. No nausea/vomiting. OBJECTIVE: Afebrile, Hemodynamically Stable. 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 Abdomen - Soft, non-tender. Bowel Sounds normal. Extremities - no edema, no calf tenderness. Laboratory Results - last 24 hr 08/24/18 08/24/18 08/24/18 06:45 06:45 06:45 WBC 9.8 RBC 4.04 Hgb 12.4 Hct 37.5 MCV 92.8 MCH 30.7 MCHC 33.1 RDW 12.8 Plt Count 334 D MPV 12.0 H Absolute Neuts (auto) 6.9 Neutrophils % 70.0 Lymphocytes % 19.8 Monocytes % 7.9 Eosinophils % 1.6 Basophils % 0.7 Nucleated RBC % 0 Sodium 140 Potassium 4.4 Chloride 108 H Carbon Dioxide 24 Anion Gap 7 L BUN 5.5 L Creatinine 0.6 Est GFR (CKD-EPI)AfAm 138.80 Est GFR (CKD-EPI)NonAf 119.76 Random Glucose 92 Calcium 8.9 Phosphorus 3.9 Magnesium 2.2 HIV 1&2 Antibody Screen Negative HIV P24 Antigen Negative Current Medications Generic Name Dose Route Start Last Admin Trade Name Freq PRN Reason Stop Dose Admin Hydromorphone HCl 2 mg 08/23/18 15:30 08/23/18 15:50 Dilaudid Vial - IM 2 mg Q8H PRN Administration PAIN LEVEL 6-10 Sodium Chloride 1,000 mls @ 75 mls/hr 08/22/18 22:30 08/24/18 10:48 Normal Saline - IV Not Given ASDIR KORTNEY Ampicillin Sodium/Sulbactam 100 mls @ 200 mls/hr 08/23/18 10:00 08/24/18 10: 47 Sodium 1.5 gm/ Sodium Chloride IVPB 200 mls/hr Q6H-IV KORTNEY Administration Vancomycin HCl 1,000 mg in 250 mls @ 166.667 mls/hr 08/23/18 16:00 08/24/18 03:56 Vancomycin (Pre-Docked) IVPB 166.667 mls/hr Q12H KORTNEY Administration Protocol ASSESSMENT/PLAN: 32 year old female with no significant PMH presents with bilateral breast tenderness/swelling, L nipple discharge, R breast erythema. Bilateral Mastitis with Abscesses and Cellulitis. US Breast Axilla - bilateral complex collections/abscesses POD 1 s/p I and D by Surgery, Surgical Cx pending. Leukocytosis resolved Seen by ID - Continue Unasyn/Vancomycin pending Cx results Discontinue IV Fluids Analagesia with percocet. DVT Px - Heparin SQ
[2018-08-24] MEDS ORDERED: ACETAMINOPHEN 325 MG TABLET (FP) PO PRN (13:30)
[2018-08-24] MEDS ORDERED: oxyCODONE HCL 5 MG TABLET PO PRN (13:30)
--- NOTE | 2018-08-24 14:44 | PN ---
Progress Note, Physician History of Present Illness: Patient has less pain in her braests. - Current Medication List Current Medications: Active Medications Acetaminophen (Tylenol -) 325 mg PO Q6H PRN PRN Reason: PAIN LEVEL 1-5 Heparin Sodium (Porcine) (Heparin -) 5,000 unit SQ TID KORTNEY Ampicillin Sodium/Sulbactam (Sodium 1.5 gm/ Sodium Chloride) 100 mls @ 200 mls/ hr IVPB Q6H-IV KORTNEY Last Admin: 08/24/18 10:47 Dose: 200 mls/hr Vancomycin HCl (Vancomycin (Pre-Docked)) 1,000 mg in 250 mls @ 166.667 mls/hr IVPB Q12H KORTNEY; Protocol Last Admin: 08/24/18 03:56 Dose: 166.667 mls/hr Oxycodone HCl (Roxicodone -) 5 mg PO Q6H PRN PRN Reason: PAIN LEVEL 1-5 - Objective Vital Signs: Vital Signs Temperature 98.7 F 08/24/18 06:00 Pulse Rate 77 08/24/18 06:00 Respiratory Rate 20 08/24/18 06:00 Blood Pressure 99/52 L 08/24/18 06:00 O2 Sat by Pulse Oximetry (%) 99 08/22/18 18:37 Labs: CBC, BMP 08/24/18 06:45 08/24/18 06:45 INR, PTT INR 1.11 (0.83-1.09) H 08/23/18 06:36 Problem List - Problems (1) Breast abscess Code(s): N61.1 - ABSCESS OF THE BREAST AND NIPPLE Assessment/Plan She is afebrile. Cultures so far are negative, no growth. dressing changed. WBC is normal. Temp; normal. Left breast : no drainage, skin nipples and areola are mormal Less tender. Right breast : The skin on the medial aspect of the breast is red , inflammed. Wound irrigated and washed,' Very little pus, Still very tender and painful. Continue warm soaks , Antibiotics. Pain management. Continue to monitor in hospital with IV antibiotics.
[2018-08-24] MEDS: HEPARIN NA (PORCINE) 5,000 UNITS/ML 1ML VIAL SQ SCH ×2 (18:01→22:13)
--- NOTE | 2018-08-24 20:21 | PN ---
Progress Note, Physician History of Present Illness: NO C/O BREAST PAIN AFEBRILE S/P I&D CULTURES PENDING - Current Medication List Current Medications: Active Medications Acetaminophen (Tylenol -) 325 mg PO Q6H PRN PRN Reason: PAIN LEVEL 1-5 Heparin Sodium (Porcine) (Heparin -) 5,000 unit SQ TID KORTNEY Last Admin: 08/24/18 18:01 Dose: 5,000 unit Ampicillin Sodium/Sulbactam (Sodium 1.5 gm/ Sodium Chloride) 100 mls @ 200 mls/ hr IVPB Q6H-IV KORTNEY Last Admin: 08/24/18 17:19 Dose: 200 mls/hr Vancomycin HCl (Vancomycin (Pre-Docked)) 1,000 mg in 250 mls @ 166.667 mls/hr IVPB Q12H KORTNEY; Protocol Last Admin: 08/24/18 17:19 Dose: 166.667 mls/hr Oxycodone HCl (Roxicodone -) 5 mg PO Q6H PRN PRN Reason: PAIN LEVEL 1-5 Last Admin: 08/24/18 17:20 Dose: 5 mg - Objective Vital Signs: Vital Signs Temperature 98.9 F 08/24/18 18:15 Pulse Rate 79 08/24/18 18:15 Respiratory Rate 20 08/24/18 18:15 Blood Pressure 117/68 08/24/18 18:15 O2 Sat by Pulse Oximetry (%) 99 08/22/18 18:37 Constitutional: Yes: No Distress Eyes: Yes: Conjunctiva Clear Cardiovascular: Yes: Regular Rate and Rhythm, S1, S2 Gastrointestinal: Yes: Normal Bowel Sounds, Soft Breast(s): Yes: Other (DRESSINGS IN PLACE + ERYTHEMA R BREAST) Labs: CBC, BMP 08/24/18 06:45 08/24/18 06:45 INR, PTT INR 1.11 (0.83-1.09) H 08/23/18 06:36 Assessment/Plan S/P I&D BREAST ABSCESSES AWAIT C/S CONTINUE EMPIRIC VANCOMYCIN/ UNASYN
[2018-08-25] MEDS ORDERED: AMPICILLIN NA/SULBACTAM NA 1.5 GM VIAL ONE ×2 (02:30→09:41)
[2018-08-25] MEDS ORDERED: SODIUM CHLORIDE 100 ML IVPB ONE ×2 (02:31→09:41)
[2018-08-25] MEDS: AMPICILLIN NA/SULBACTAM NA 1.5 GM in SODIUM CHLORIDE 100 ML IVPB SCH ×3 (02:34→15:34)
[2018-08-25] MEDS: VANCOMYCIN 1 GRAM (PRE-DOCKED) 1,000 MG/250 ML BAG IVPB SCH ×2 (03:43→15:34)
[2018-08-25] MEDS: HEPARIN NA (PORCINE) 5,000 UNITS/ML 1ML VIAL SQ SCH ×2 (06:10→15:29)
[2018-08-25 07:46] LABS: HEMOGLOBIN 12.4 GM/dL (10.7-15.3); MCH 30.8 pg (25.7-33.7); MCHC 33.5 g/dl (32.0-36.0); RBC 4.02 M/mm3 (3.60-5.2); RDW 12.6 % (11.6-15.6)
[2018-08-25 12:14] VITALS: PULSE 83
--- NOTE | 2018-08-25 13:47 | PN ---
Progress Note, Physician History of Present Illness: NO C/O BREAST PAIN AFEBRILE S/P I&D CULTURES NO GROWTH - Current Medication List Current Medications: Active Medications Acetaminophen (Tylenol -) 325 mg PO Q6H PRN PRN Reason: PAIN LEVEL 1-5 Heparin Sodium (Porcine) (Heparin -) 5,000 unit SQ TID KORTNEY Last Admin: 08/25/18 06:10 Dose: 5,000 unit Ampicillin Sodium/Sulbactam (Sodium 1.5 gm/ Sodium Chloride) 100 mls @ 200 mls/ hr IVPB Q6H-IV KORTNEY Last Admin: 08/25/18 09:51 Dose: 200 mls/hr Vancomycin HCl (Vancomycin (Pre-Docked)) 1,000 mg in 250 mls @ 166.667 mls/hr IVPB Q12H KORTNEY; Protocol Last Admin: 08/25/18 03:43 Dose: 166.667 mls/hr Oxycodone HCl (Roxicodone -) 5 mg PO Q6H PRN PRN Reason: PAIN LEVEL 1-5 Last Admin: 08/24/18 17:20 Dose: 5 mg - Objective Vital Signs: Vital Signs Temperature 98.9 F 08/25/18 10:00 Pulse Rate 83 08/25/18 10:00 Respiratory Rate 20 08/25/18 10:00 Blood Pressure 112/68 08/25/18 10:00 O2 Sat by Pulse Oximetry (%) 99 08/24/18 21:00 Constitutional: Yes: No Distress Breast(s): Yes: Other (MINIMAL ERYTHEMA MEDIAL ASPECT R BREAST; NO WOUND DRAINAGE) Labs: CBC, BMP 08/25/18 06:35 08/24/18 06:45 INR, PTT INR 1.11 (0.83-1.09) H 08/23/18 06:36 Assessment/Plan S/P I&D BREAST ABSCESSES C/S NO GROWTH SUBSTITUTE BACTRIM DS PO BID 7D OUTPATIENT SURGERY F/U
--- NOTE | 2018-08-25 14:29 | DS ---
Physical Exam: SUBJECTIVE: Reports improvement in breast pain/tenderness s/p I and D OBJECTIVE: Afebrile, Hemodynamically Stable. Vital Signs Period Temp Pulse Resp BP Sys/Meraz Pulse Ox Last 24 Hr 98 F-98.9 F 67-85 16-20 107-117/60-78 99 PHYSICAL EXAM Heart - S1, S2, RRR Lungs - clear to auscultation Breasts - dressings in place. Abdomen - Soft, non-tender. Bowel Sounds normal Extremities - no edema, no calf tenderness. LABS Laboratory Results - last 24 hr 08/25/18 06:35 WBC 9.0 RBC 4.02 Hgb 12.4 Hct 37.0 MCV 92.0 MCH 30.8 MCHC 33.5 RDW 12.6 MPV 12.0 H Date of Admission:08/22/18 Date of Discharge: 08/25/18 Minutes to complete discharge: 40 Discharge Summary Reason For Visit: ABSCESS OF BREAST Hospital Course: 32 year old female with no significant PMH presents with bilateral breast tenderness/swelling, L nipple discharge, R breast erythema, found to have multiple fluid collections/abscesses bilaterally. She underwent I and D by Surgery and has responded well to surgical intervention with concomitant Abx use , now reporting significant improvement in her symptoms. Bilateral Mastitis with Abscesses and Cellulitis. US Breast Axilla - bilateral complex collections/abscesses POD 2 s/p I and D by Surgery, Surgical Cx - no growth Leukocytosis resolved Received Unasyn/Vancomycin as in-patient - seen by ID with recommendation for 7 additional days oral Bactrim. Discussed with Dr. Castillo (Surgery) - in agreement with above plan - will follow in his office. 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 Condition: Good - Instructions Diet, Activity, Other Instructions: You were seen in the hospital for complaints of bilateral breast pain. A breast U/S was done that showed abscess in both breasts. You were given IV antibiotics and evaluated by the surgeon. You underwent a procedure to drain the abscesses in both breasts. During your hospital stay, your symptoms improved. You are being discharged home. MEDICATIONS Please take FOLLOW UP Please follow up with your primary care physician within 1 week. If you do not have a PCP, you may make an appointment at [facility] with Dr. Cristiano Obrien. Please follow up with your surgeon, Dr. Castillo for further evaluation of your infection. It is recommended that you continue antibiotic Bactrim DS BID for 7 additional days with out-patient follow up with Dr. Castillo. Dressing change and instructions as per Surgery If you experience worsening breast tenderness, increased drainage, persistent breast pain, chest pain, shortness of breath, fever/chills or other associated symptoms, please proceed to your nearest emergency room immediately for further evaluation. Referrals: [facility] [place] [facility] [Provider Group] - 1 Week Cristiano Obrien MD [Staff Physician] - 1 Week Jj Castillo MD [Staff Physician] - 1 Week Disposition: HOME - Home Medications Comprehensive Discharge Medication List: Ambulatory Orders Clindamycin [Cleocin -] 300 mg PO TID #30 capsule 08/19/18 Sulfamethoxazole/Trimethoprim [Bactrim Ds -] 1 tab PO BID #14 tablet 08/25/18 This patient is new to me today: No Emergency Visit: Yes ED Registration Date: 08/22/18 Care time: The patient presented to the Emergency Department on the above date and was hospitalized for further evaluation of their emergent condition. Critical Care patient: No - Discharge Referral Referred to [facility] No
[2018-08-25 15:19] VITALS: BP 125/77; TEMP 98.8
[2018-08-25 15:51] LABS: PLATELET COUNT 323 K/MM3 (134-434)
== END 2018-08-25 16:57 | disposition home or self-care (01) | DRG 363 ==
LOC: JER 18:30 → JERBED 21:34 → J8W 22:27
PROVIDERS: ADMIT Internal Medicine
PROC: 0H9V0ZX Drainage of Bilateral Breast, Open Approach, Diagnostic (ICD-10-PCS; principal; 2018-08-23)
DX: N61.1 Abscess of the breast and nipple (principal); N64.52 Nipple discharge; F12.90 Cannabis use, unspecified, uncomplicated; D72.829 Elevated white blood cell count, unspecified
CPT/HCPCS: 36415; 76642-TC-50; 80048; 80053; 80307; 81003; 83735; 84100; 84703; 85025; 85027; 85610; 86850; 86900; 86901; 87040; 87070; 87075; 87077; 87205; 87389; 99282-25; J1644; J7030

== ENCOUNTER 2018-09-09 17:50 | Inpatient (IN) | payer SELFPAY ==
--- NOTE | 2018-09-09 17:59 | PDOC ---
Rapid Medical Evaluation Time Seen by Provider: 09/09/18 17:54 Medical Evaluation: Allergies Allergy/AdvReac Type Severity Reaction Status Date / Time No Known Allergies Allergy Verified 08/22/18 18:36 09/09/18 17:54 I have performed a brief in-person evaluation of this patient. The patient presents with a chief complaint of: left breast abscess spontaneously draining Pertinent physical exam findings: deferred I have ordered the following: nothing The patient will proceed to the ED for further evaluation. Discharge Disposition - Diagnosis Breast abscess of female - Referrals - Patient Instructions - Post Discharge Activity
--- NOTE | 2018-09-09 18:31 | PDOC ---
History of Present Illness - General Chief Complaint: Wound Stated Complaint: FEELING PAIN Time Seen by Provider: 09/09/18 17:54 - History of Present Illness Initial Comments: 09/09/18 18:28 32 y/o F on Augmentin for L breast abscess, presents for worsening symptoms, drainage and pain. S/P I & D Dr Castillo Past History - Past Medical History Allergies/Adverse Reactions: Allergies Allergy/AdvReac Type Severity Reaction Status Date / Time No Known Allergies Allergy Verified 09/09/18 17:59 Home Medications: Ambulatory Orders Clindamycin [Cleocin -] 300 mg PO TID #30 capsule 08/19/18 Sulfamethoxazole/Trimethoprim [Bactrim Ds -] 1 tab PO BID #14 tablet 08/25/18 COPD: No - Surgical History GI Surgery: No - Immunization History Immunization Up to Date: No - Suicide/Smoking/Psychosocial Hx Smoking History: Never smoked Have you smoked in the past 12 months: No If you are a former smoker, when did you quit?: 2014 Hx Alcohol Use: No Drug/Substance Use Hx: No Review of Systems - Review of Systems Integumentary: Yes: See HPI *Physical Exam - Vital Signs Last Vital Signs Temp Pulse Resp BP Pulse Ox 98.7 F 82 18 128/71 98 09/09/18 17:59 09/09/18 17:59 09/09/18 17:59 09/09/18 17:59 09/09/18 17:59 - Physical Exam Comments: 09/09/18 18:29 Breast examination done with F scribe in the room Chrissy Oscar breast is erythemic, indurated, warm and sensitive with purulent drainage from the L nipple. Medical Decision Making - Medical Decision Making 09/09/18 18:30 Labs ordered pt moved to main ER for admission, failing out pt treatment on Augmentin *DC/Admit/Observation/Transfer Diagnosis at time of Disposition: Breast abscess of female - Referrals - Patient Instructions - Post Discharge Activity
--- NOTE | 2018-09-09 20:05 | PDOC ---
History of Present Illness - General Chief Complaint: Wound Stated Complaint: FEELING PAIN Time Seen by Provider: 09/09/18 17:54 - History of Present Illness Initial Comments: 09/09/18 20:00 32 yo F with h/o recurrent left sided breast abscess who p/w left breast pain, nipple drainage and discharge. Patient reports onset of BL nipple redness, pain beginning 08-11-18. Has been treated with 10 day course of Clindamycin, with no improvement. Admitted to [facility] (08/22/18) treated with Vanc/Unasyn and discharged following BL breast I&D Dr. Castillo. Has been experiencing 1 week of worsening left breast redness, warmth, swelling, pain. reports acute onset of yellow drainage discharge from left nipple. Evaluated by Dr. Castillo Surgery Sunday , and PMD Dr. Obrien Sunday stated on Augmentin BID. Has taken two pills to date. Reports h/o nipple piercing, removed 10 years ago. H/o crhonic right nipple inversion. Denies h/o DM, IVDA. Patient denies SALAS, vision change, palpitations, cough, wheezing, orthopena, PND , leg swelling/pain, N/V, F,C, CP, SOB, urinary complaints, hematuria, BPR, abdominal pain, vaginal discharge/burning/itching, diarrhea, constipation, lightheadedness, weakness, sensory changes. PMHx: as noted above ROS: as noted SHx: Denies Etoh, IVDA, tobacco use. Sexually active monogamous with one male partner. Allergies: NKDA Past History - Past Medical History Allergies/Adverse Reactions: Allergies Allergy/AdvReac Type Severity Reaction Status Date / Time No Known Allergies Allergy Verified 09/09/18 17:59 COPD: No - Surgical History GI Surgery: No - Immunization History Immunization Up to Date: No - Suicide/Smoking/Psychosocial Hx Smoking History: Never smoked Have you smoked in the past 12 months: No If you are a former smoker, when did you quit?: 2014 Hx Alcohol Use: No Drug/Substance Use Hx: No Review of Systems - Review of Systems Comments:: 09/09/18 20:33 GENERAL/CONSTITUTIONAL: No fever or chills. No weakness. HEAD, EYES, EARS, NOSE AND THROAT: No change in vision. No ear pain or discharge. No sore throat. CARDIOVASCULAR: No chest pain or shortness of breath RESPIRATORY: No cough, wheezing, or hemoptysis. GASTROINTESTINAL: No nausea, vomiting, diarrhea or constipation. GENITOURINARY: No dysuria, frequency, or change in urination. MUSCULOSKELETAL: No joint or muscle swelling or pain. No neck or back pain. SKIN:+ Left breast abscess. No rash NEUROLOGIC: No headache, vertigo, loss of consciousness, or change in strength/ sensation. ENDOCRINE: No increased thirst. No abnormal weight change HEMATOLOGIC/LYMPHATIC: No anemia, easy bleeding, or history of blood clots. ALLERGIC/IMMUNOLOGIC: No hives or skin allergy. *Physical Exam - Vital Signs Last Vital Signs Temp Pulse Resp BP Pulse Ox 98.7 F 82 18 128/71 98 09/09/18 17:59 09/09/18 17:59 09/09/18 17:59 09/09/18 17:59 09/09/18 17:59 - Physical Exam Comments: 09/09/18 20:34 GENERAL: Awake, alert, and fully oriented, in no acute distress HEAD: No signs of trauma, normocephalic, atraumatic EYES: PERRLA, EOMI, sclera anicteric, conjunctiva clear ENT: Auricles normal inspection, hearing grossly normal, nares patent, oropharynx clear without exudates. Moist mucosa NECK: Normal ROM, supple, no lymphadenopathy, JVD, or masses LUNGS: No distress, speaks full sentences, clear to auscultation bilaterally HEART: Regular rate and rhythm, normal S1 and S2, no murmurs, rubs or gallops, peripheral pulses normal and equal bilaterally. ABDOMEN: Soft, nontender, normoactive bowel sounds. No guarding, no rebound. No masses BREAST: + Left nipple drainage discharge/yellow, non serosanguoineous, with 4 x 5 cm area of circumferential erythema/firmness/ttp with irregular margins, negative induration, fluctuance, crepitus. Neg axillary lympohadneoapthy. Right breast nipple inversion. EXTREMITIES : Normal inspection, Normal range of motion, no edema. No clubbing or cyanosis. NEUROLOGICAL: Cranial nerves II through XII grossly intact. Normal speech, normal gait, no focal sensorimotor deficits SKIN: Warm, Dry, normal turgor, no rashes or lesions noted ED Treatment Course - LABORATORY CBC & Chemistry Diagram: 09/09/18 21:00 09/09/18 21:00 - ADDITIONAL ORDERS Additional order review: 09/09/18 22:58 Patient Information: : 1985 Order Type: Preliminary Name: ANN JOHNSON Sex: F Study Description: US BREAST EMERGENT Modality: US Location: [facility] Referring Physician: ELVIA WALKER Comments: Lupe Lopez MD wrote on Sep 09, 2018 at 10:19 PM: Referring Physician: ELVIA WALKER Patient Name: ALEX JUAREZ THIS IS A PRELIMINARY REPORT FROM [facility] DATE OF SERVICE: 2018-09-09 21:14:08 IMAGES: 17 EXAM: ULTRASOUND LEFT BREAST HISTORY: Abscess COMPARISON: None. FINDINGS: Grayscale imaging performed and directed in the area of concern. In the retroareolar space is a complex collection surrounded by vascularity measuring 3.3 x 2.5 x 3.2 cm likely representing abscess. IMPRESSION: Retroareolar abscess collection. CONFIDENTIALITY NOTICE: This information is intended only for the use of the recipient(s) named above. If you are not the intended recipient, or a person responsible for delivering it to the intended recipient, you are hereby notified that any disclosure, copying, distribution or use of any of the information contained in or attached to this transmission is STRICTLY PROHIBITED. If you have received this transmission in error, please immediately notify Imaging Director Advertising and destroy the original transmission and its attachments without saving them in any manner [address] [place] [address] [place] [address] Phone: [phone] ([phone]) Fax: Email: [email or web address] Web: [email or web address] Patient Information: : 1985 Order Type: Preliminary Name: ANN JOHNSON Sex: F Study Description: US BREAST EMERGENT Modality: US Location: [facility] Referring Physician: ELVIA WALKER THIS DOCUMENT HAS BEEN ELECTRONICALLY SIGNED Lupe Lopez D.O. 09/09/2018 22:18 RADHA Lynn Please call Imaging Director Advertising [phone]) with questions. Lupe Lopez MD Clinicians - Please contact Imaging Director Advertising with further questions at [phone]) Patients - Please contact your Ordering Provider with questions. Medical Decision Making - Medical Decision Making 09/09/18 20:32 32 yo F with h/o recurrent left sided breast abscess who p/w left breast pain, nipple drainage and discharge. Vitals wnl, AF, A&OX3. + Left nipple drainage discharge/yellow, non serosanguoineous, with 4 x 5 cm area of circumferential erythema/firmness/ttp with irregular margins, negative induration, fluctuance, crepitus. Absent evidence of lymphangitic spread. Neg axillary lympohadneoapthy. Right breast nipple inversion. Evaluate for left breast abscess vs. mastitis. Patient 0/4 SIRS criteria on presentation. No evidence immunocompromise, IVDA, or known h/o DM. Patient with failed outpt. course, and h/o difficult to treat breast abscess. Plan for admission with IV antibiotics, pain control. ED course: 09/09/18 20:40 Blood cx., wound cx. sent NS, Vanc, Unasyn, Toradol 09/09/18 21:34 Laboratory Tests 09/09/18 21:00 WBC 12.0 H Hgb 13.0 Hct 40.2 Plt Count 283 WBC: 9.0 (08/25/18) UA: Neg 09/09/18 22:49 Laboratory Tests 09/09/18 09/09/18 21:00 21:00 BUN 14.6 Creatinine 0.8 Serum , Qual Negative 09/09/18 22:58 Breast U/S: In the left retroareolar space is a complex collection surrounded by vascularity measuring 3.3 x 2.5 x 3.2 cm likely representing abscess. 09/09/18 23:46 Pt. endorsed admitted to medicine. Dr. Kim and Mustapha *DC/Admit/Observation/Transfer Diagnosis at time of Disposition: Breast abscess of female - Discharge Dispostion Decision to Admit order: Yes - Referrals - Patient Instructions - Post Discharge Activity
[2018-09-09 21:13] LABS: PH,URINE 6.5 (5.0-8.0); URINE APPEARANCE CLEAR; URINE BILIRUBIN NEGATIVE (NEGATIVE); URINE COLOR YELLOW; URINE GLUCOSE (UA) NEGATIVE (NEGATIVE); URINE KETONE TRACE (NEGATIVE); URINE LEUK ESTERASE NEGATIVE (NEGATIVE); URINE NITRITE NEGATIVE (NEGATIVE); URINE PROTEIN NEGATIVE (NEGATIVE); URINE UROBILINOGEN 0.2 mg/dL (0.2-1.0)
[2018-09-09 21:17] LABS: BASO % 0.8 % (0-2.0); EOS % 1.7 % (0-4.5); HEMATOCRIT 40.2 % (32.4-45.2); LYMPH % 28.9 % (8-40); MCHC 32.4 g/dl (32.0-36.0); MEAN CELL VOLUME 92.4 fl (80-96); MEAN PLT VOLUME 11.2 fl (7.5-11.1); MONO % 5.2 % (3.8-10.2); NEUT % 63.4 % (42.8-82.8); PLATELET COUNT 283 K/MM3 (134-434); RBC 4.35 M/mm3 (3.60-5.2); RDW 13.3 % (11.6-15.6)
[2018-09-09] MEDS ORDERED: VANCOMYCIN 1 GM in D5W (PRE-DOCKED) 1,000 MG/250 ML IVPB ONE (21:24)
[2018-09-09] MEDS ORDERED: AMPICILLIN NA/SULBACTAM NA 1.5 GM in SODIUM CHLORIDE 100 ML IVPB ONE (21:24)
[2018-09-09] MEDS ORDERED: SODIUM CHLORIDE 1,000 ML IV STA (21:25)
[2018-09-09] MEDS ORDERED: KETOROLAC TROMETHAMINE 30 MG/1 ML VIAL IVPUSH ONE (21:26)
[2018-09-09 21:29] LABS: INR 1.05 (0.83-1.09); PROTHROMBIN TIME (PATIENT) 12.4 SEC (9.7-13.0)
[2018-09-09] MEDS ORDERED: KETOROLAC TROMETHAMINE 30 MG/1 ML VIAL ONE (22:02)
[2018-09-09] MEDS ORDERED: VANCOMYCIN 1 GRAM (PRE-DOCKED) 1,000 MG/250 ML BAG IVPB ONE (22:03)
[2018-09-09 22:45] LABS: ALBUMIN 3.8 g/dl (3.4-5.0); BILIRUBIN,TOTAL 0.2 mg/dL (0.2-1); BLOOD UREA NITROGEN 14.6 mg/dL (7-18); CREATININE 0.8 mg/dL (0.55-1.3); POTASSIUM 4.3 mmol/L (3.5-5.1); TOT PROT 7.3 g/dl (6.4-8.2)
--- NOTE | 2018-09-09 23:25 | PN ---
Teaching Attending Note Name of Resident: Fanny Kim ATTENDING PHYSICIAN STATEMENT I saw and evaluated the patient. I reviewed the resident's note and discussed the case with the resident. I agree with the resident's findings and plan as documented. SUBJECTIVE: Patient is a 32 year old woman with PMH of recurrent left sided breast abscess who presents with left left breast pain, nipple drainage and discharge. Patient reports onset of bilateral nipple redness, pain beginning 08-11-18. Had been treated with 10 day course of Clindamycin, with no improvement. Admitted to [facility] (08/22/18), had bilateral beast I&D Dr. Castillo on 08/23/18, treated with Vancomycin and Unasyn (for about 3 days) and discharged on 08/25/18 with prescription for PO Bactrim DS Bid for 7 days. Two days ago her PCP started her on Augmentin BID. Has taken two pills to date. EKG shows NSR with no significant ST-T wave changes. She has been experiencing 1 week of worsening left breast redness, warmth, swelling, pain. reports acute onset of yellow drainage discharge from left nipple. Evaluated by Dr. Castillo Surgery Sunday, and PMD Dr. Obrien Sunday stated on Augmentin BID. Has taken two pills to date. Reports h/o nipple piercing, removed 10 years ago. H/o crhonic right nipple inversion. Denies h/o DM, IVDA. She is an exsmoker and use marijuana daily. Denies using any other illicit drug. Reports nipple piercing, removed 10 years ago. Has chronic right nipple inversion. Denies IVDA or injecting drugs into her breast. Her LMP was 08/19/18. Patient denies headache, vision change, palpitations, cough, wheezing, orthopena , PND, leg swelling/pain, nausea, vomiting, chest pain, SOB, urinary complaints , hematuria, BPR, abdominal pain, abnormal vaginal discharge/burning/itching, diarrhea, constipation, lightheadedness or weakness. OBJECTIVE: Alert Vital Signs Period Temp Pulse Resp BP Sys/Meraz Pulse Ox Last 24 Hr 98.7 F 82 18 128/71 98 HEENT: No Jaundice, eye redness or discharge, PERRLA, EOMI. Normocephalic, atraumatic. External ears are normal and hearing is grossly intact. No nasal discharge. Neck: Supple, nontender. No palpable adenopathy or thyromegaly. No JVD Chest: Good effort. Clear to auscultation and percussion. Left nipple yellow discharge; 4 x 5 cm area of circumferential erythema/firmness/tender to palpation; no fluctuance or crepitus. No palpable axillary lympohadneoapthy. Right breast nipple inversion with adjacent area of firmness. Heart: Regular. No S3, rub or murmur Abdomen: Not distended, soft, nontender and no HSM. No rebound or guarding. Normal bowel sounds. Ext: Peripheral pulses intact. No leg edema. Skin: Warm and dry. No petechiae, rash or ecchymosis. Neuro: Alert. Oriented x3. CN 2-12 grossly intact. Sensation grossly intact in all four extremities and DTR are symmetric. Psych: Appropriate mood and affect. Good insight. Current Medications Generic Name Dose Route Start Last Admin Trade Name Freq PRN Reason Stop Dose Admin Sodium Chloride 1,000 mls @ 83 mls/hr 09/10/18 00:45 Normal Saline - IV 09/11/18 12:48 ASDIR KORTNEY Vancomycin HCl 1,500 mg/ 500 mls @ 250 mls/hr 09/10/18 10:00 Dextrose IVPB 09/10/18 11:59 ONCE ONE Protocol Vancomycin HCl 1,250 mg/ 250 mls @ 166.667 mls/hr 09/10/18 22:00 Dextrose IVPB Q12H KORTNEY Protocol Ketorolac Tromethamine 15 mg 09/10/18 00:34 Toradol Injection - IVPUSH 09/15/18 00:33 Q6H PRN PAIN LEVEL 6-10 Abnormal Lab Results 09/09/18 09/09/18 09/09/18 21:00 21:00 21:00 WBC 12.0 H MPV 11.2 H Anion Gap 7 L Urine Ketones Trace H ASSESSMENT AND PLAN: 1. Bilateral breast abscess - Ultrasound confirms bilateral complex fluid collection most likely abscess - almost equivalent to the size before her recent I&D. 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 Will start patient on IV vancomycin, IV NS and consult ID and Surgery. 2. DVT prophylaxis - Will use SCD for now since she may be going for surgical drainage; Give Lovenox 40 mg SQ q 24 hours after procedure. 3. Advance directives - Full code.
--- NOTE | 2018-09-09 23:38 | PDOC ---
Documentation entered by Danilo Cruz SCRIBE, acting as scribe for Clem Perez MD. Clem Perez MD: This documentation has been prepared by the Anthony singh Elijah, SCRIBE, under my direction and personally reviewed by me in its entirety. I confirm that the documentation accurately reflects all work, treatment, procedures, and medical decision making performed by me. Attending Attestation - Resident Resident Name: Alvaro De Los Santos - ED Attending Attestation I have performed the following: I have examined & evaluated the patient, The case was reviewed & discussed with the resident, I agree w/resident's findings & plan - HPI HPI: 09/09/18 21:07 The patient is a 32 year old female with a significant PMH of recurrent left sided breast abscess who presents to the emergency department with left breast pain over the last three weeks and nipple drainage and discharge beginning x1 day prior. The patient reports initial nipple redness and pain in both breasts beginning about a month prior. The patient was given Clindamycin and saw no improvement after 10 days of usage. The patient was then admitted into [facility], was given Vanc/Unasyn and was discharged. At this moment, the Left Breast pain has not improved over the last week and the patient associates warmth, redness and swelling. Patient was seen by Dr. Castillo a week ago, and Dr. Fernandez three days prior and has been since stated on Augmentin BID (Taking 2 pills so far). Denies chest pain, shortness of breath, headache and dizziness, fever, chills, nausea, vomiting, diarrhea and constipation, dysuria, frequency, urgency and hematuria. Allergies: NKA PCP: Dr. Fernandez - Physicial Exam PE: 09/09/18 23:36 exam general no acute distress breast large indurated, tender mass in L breast with nipple dc - Medical Decision Making 09/09/18 21:17 32y F hx of recurrent b/l mastattis/ presents with L breast pain was on course of clinda without improvement, admitted in early august where she had b/l breast abcess drainage and was on vancomycin and unasyn with resolution of R breast sypmtoms. Pt fu with surgery as outpatient and was started on augmentin by PMD but continues to have L breast pain/swelling and now discharge from her nipple. ddx - absccess vs ?malignancy US noted for larger collection/mass relative to prior US will dw surgery anticipate admissino for further management
--- NOTE | 2018-09-10 00:08 | HP ---
Admitting History and Physical - Primary Care Physician PCP: Dr Brower - Admission Chief Complaint: L breast drainage x 1 day History of Present Illness: Pt is a 32 year F with prior bilateral breast abscess s/p drainage 08/23/[address] Castillo now presenting with 2 week history of worsening L breast pain and 1 day hx of greenish discharge from L breast. Pt describes up to 4oz of greenish non bloody drainage from the left breast. She reports changing soaked dressing several times until after she got the breast US in the ED today, when it resolved. Following discharge from hospital on 08/25/18, pt reports improvement in b/l breast symptoms. Five days after discharge, she noticed periareolar redness and pain 10/26 which was improved initially with warm shower. No fever, no malaise, no loss of appetite, no nausea or vomiting. She reports an episode of malaise 3 days ago, but no syncope, no chest pain or SOB. Pt reports completing initial prescribed antibiotic (bactrim 7 days dose after initial I&D) , following up with Dr Castillo on Sunday (8th day after discharge), and Dr Obrien on Sunday ([address] days ago). Dr Castillo had thought there was improvement and did not continue antibiotics. After seeing Dr Fernandez on Sunday, she re-prescribed antibiotics (augmentin) for which she took 2 pills. Pt never had mammogram. No family hx of cancer. Menarche [age]yrs, 08/13, LMP-08/19/18. G1P) A1 (non alive). Pt reports reports noting spontaneous b/l nipple retraction at 19 for which she has not be worked up. Pt denies trauma, bites prior to onset of symptoms. Per pt last papsmear was about a year ago, showed bacterial vaginosis for which she has been treated. Has non protected sex with male partner of 4years. 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 ED: WBC-12, EKG_75bpm, nsr, nl axis, nl intervals, no LAWRENCE?STD, QTC-422 L breast US: 3.3 x2.5 x3.2 retroareolar space complex collection 09/10/18 compared to 3.3 x2.9x2.2cm complex L retroareolar mass with more solid collection noted within the L breast collection. Pt received unasyn, vanc-1g, NS-1L, ketorolac in ED (vomited with pain meds last admission) History Source: Patient, Medical Record Limitations to Obtaining History: No Limitations - Past Medical History ...LMP: 08/17/18 - Smoking History Smoking history: Former smoker Have you smoked in the past 12 months: No If you are a former smoker, when did you quit?: 2014 - Alcohol/Substance Use Hx Alcohol Use: No History of Substance Use: reports: Marijuana - Social History Usual Living Arrangement: Yes: With Parent, With Significant Other ADL: Independent Occupation: works for [employer] History of Recent Travel: No Home Medications - Allergies Allergies/Adverse Reactions: Allergies Allergy/AdvReac Type Severity Reaction Status Date / Time No Known Allergies Allergy Verified 09/09/18 17:59 Family Disease History - Family Disease History Family Disease History: CA: Father (Liver cancer s/p transplant) Review of Systems - Review of Systems Constitutional: denies: Diaphoresis, Fever, Lethargy, Loss of Appetite Eyes: denies: Blurred Vision HENT: denies: Difficult Swallowing Neck: denies: Stiffness Cardiovascular: denies: Chest Pain, Edema, Palpitations, Shortness of Breath Respiratory: denies: Cough Gastrointestinal: denies: Abdominal Pain, Constipation, Diarrhea, Vomiting Genitourinary: denies: Burning, Discharge, Dysuria Musculoskeletal: denies: Back Pain Neurological: denies: Change in LOC, Change in Speech, Confusion, Dizziness, Syncope, Tremors Physical Examination Vital Signs: Vital Signs Temperature 98.7 F 09/09/18 17:59 Pulse Rate 82 09/09/18 17:59 Respiratory Rate 18 09/09/18 17:59 Blood Pressure 128/71 09/09/18 17:59 O2 Sat by Pulse Oximetry (%) 98 09/09/18 17:59 Constitutional: Yes: Anxious, Mild Distress Eyes: Yes: Conjunctiva Clear, EOM Intact, PERRL. No: Sclera Icterus HENT: Yes: Atraumatic Neck: Yes: Supple Cardiovascular: Yes: S1, S2 Respiratory: Yes: CTA Bilaterally. No: Rales, Rhonchi, Wheezes Gastrointestinal: Yes: Normal Bowel Sounds, Soft. No: Tenderness Renal/: No: CVA Tenderness - Left, CVA Tenderness - Right Breast(s): Yes: Left (retracted nipple with hard-firm periareolar region. Hyperemic warm L breast from about 9 oclock to 3 oclock. @cmx1cm fluctuant ( blisterlike) are at about 3 o'clock medial to L breast. No obvious drainage, no breast discharge, no peau d'orange), Right (Retracted R breast with firm to hard periareolar region. No redness. Normal temperature), Nipple Inversion, Skin Changes. No: Breast Implants, Dimpling, Discharge from Nipple, Mass Musculoskeletal: No: Back Pain, Joint Stiffness Extremities: Yes: WNL Neurological: Yes: Alert, Oriented. No: Aphasia, Babinski negative, Facial Droop, Lethargy, Pre-Existing Deficit, Unsteady Gait ...Motor Strength: WNL Psychiatric: Yes: Alert, Oriented Labs: CBC, BMP 09/09/18 21:00 09/09/18 21:00 Imaging - Results Ultrasound: Report Reviewed Assessment/Plan Pt is a 32 year F with prior bilateral breast abscess s/p drainage 08/23/[address] Castillo now presenting with 2 week history of worsening L breast pain and 1 day hx of greenish discharge from L breast. #L breast abscess: s/p b/l breast abscess and I&D Prior antibiotic use breast abscess grew-arcanobacterium hemolyticum and Gemella morbillorum (no sensitivities indicated) Recieved vanc and unasyn in Ed Will cont Vanco Dr Murphy saw pt in past- Consult I&D by Dr Castillo in past- Consult Pt may benefit from further work up with outpt mammogram/biopsy Ketorolac for pain NS @83 NPO after midnight Hold chemical prophylaxis in case of procedure Bcx- pending Abscess cx pending Repeat CBC, CMP Medsurg Visit type - Emergency Visit Emergency Visit: Yes ED Registration Date: 09/09/18 Care time: The patient presented to the Emergency Department on the above date and was hospitalized for further evaluation of their emergent condition. - New Patient This patient is new to me today: Yes Date on this admission: 09/10/18 - Critical Care Critical Care patient: No
[2018-09-10] MEDS: SODIUM CHLORIDE 1,000 ML IV SCH ×2 (02:17→15:42)
[2018-09-10 06:17] LABS: BASO % 1.3 % (0-2.0); EOS % 2.2 % (0-4.5); HEMATOCRIT 33.6 % (32.4-45.2); HEMOGLOBIN 11.2 GM/dL (10.7-15.3); LYMPH % 35.7 % (8-40); MCH 30.7 pg (25.7-33.7); MCHC 33.3 g/dl (32.0-36.0); MEAN CELL VOLUME 92.1 fl (80-96); MEAN PLT VOLUME 10.8 fl (7.5-11.1); MONO % 6.6 % (3.8-10.2); NEUT % 54.2 % (42.8-82.8); PLATELET COUNT 231 K/MM3 (134-434); RBC 3.65 M/mm3 (3.60-5.2); RDW 13.1 % (11.6-15.6); WHITE BLOOD COUNT 8.4 K/mm3 (4.0-10.0)
[2018-09-10 06:33] LABS: INR 1.08 (0.83-1.09); PROTHROMBIN TIME (PATIENT) 12.7 SEC (9.7-13.0)
[2018-09-10 06:35] LABS: ACTIVATED PTT 30.7 SECONDS (25.2-36.5)
[2018-09-10 06:43] LABS: ALBUMIN 2.9 g/dl (3.4-5.0); BILIRUBIN,TOTAL 0.4 mg/dL (0.2-1); BLOOD UREA NITROGEN 10.6 mg/dL (7-18); CALCIUM 7.7 mg/dL (8.5-10.1); CREATININE 0.6 mg/dL (0.55-1.3); PHOSPHOROUS 3.2 mg/dL (2.5-4.9); POTASSIUM 3.9 mmol/L (3.5-5.1); TOT PROT 5.5 g/dl (6.4-8.2)
[2018-09-10] MEDS ORDERED: VANCOMYCIN HCL 1,500 MG in DEXTROSE 5%-WATER - 500 ML IVPB ONE (10:00)
[2018-09-10] MEDS ORDERED: KETOROLAC TROMETHAMINE 15 MG/ML VIAL ONE (10:12)
[2018-09-10] MEDS: KETOROLAC TROMETHAMINE 15 MG/ML VIAL IVPUSH PRN ×2 (10:16→21:42)
--- NOTE | 2018-09-10 10:34 | EKG ---
Test Reason : Blood Pressure : / mmHG Vent. Rate : 075 BPM Atrial Rate : 075 BPM P-R Int : 172 ms QRS Dur : 084 ms QT Int : 378 ms P-R-T Axes : 056 067 049 degrees QTc Int : 422 ms NORMAL SINUS RHYTHM NORMAL ECG NO PREVIOUS ECGS AVAILABLE Confirmed by Dash Seals MD ([id number]) on 09/10/2018 10:34:35 AM Referred By: Confirmed By:Dash Seals MD
--- NOTE | 2018-09-10 10:40 | PN ---
Progress Note, Physician History of Present Illness: Patient is known to me , s/p Drainage of bilateral breast abscesses, now with recurrent pain and swelling in left breast. Right breast resolved. - Current Medication List Current Medications: Active Medications Sodium Chloride (Normal Saline -) 1,000 mls @ 83 mls/hr IV ASDIR KORTNEY Stop: 09/11/18 12:48 Last Admin: 09/10/18 02:17 Dose: 83 mls/hr Vancomycin HCl 1,500 mg/ (Dextrose) 500 mls @ 250 mls/hr IVPB ONCE ONE; Protocol Stop: 09/10/18 11:59 Vancomycin HCl 1,250 mg/ (Dextrose) 250 mls @ 166.667 mls/hr IVPB Q12H KORTNEY; Protocol Ketorolac Tromethamine (Toradol Injection -) 15 mg IVPUSH Q6H PRN PRN Reason: PAIN LEVEL 6-10 Stop: 09/15/18 00:33 Last Admin: 09/10/18 10:16 Dose: 15 mg - Objective Vital Signs: Vital Signs Temperature 98.1 F 09/10/18 10:06 Pulse Rate 72 09/10/18 10:06 Respiratory Rate 20 09/10/18 10:06 Blood Pressure 140/73 09/10/18 10:06 O2 Sat by Pulse Oximetry (%) 99 09/10/18 07:11 Breast(s): Yes: Other (Right breast is normal, no pain , no redness. Left breast: pain and tender at the nipple, and medial to it. Exquisitey tender and fluctuant, ? recurrent abscess left breast.) Labs: CBC, BMP 09/10/18 05:40 09/10/18 05:40 INR, PTT INR 1.08 (0.83-1.09) 09/10/18 05:40 Problem List - Problems (1) Breast abscess of female Code(s): N61.1 - ABSCESS OF THE BREAST AND NIPPLE Assessment/Plan recurrent abscess left breast. Plan : reopening prior incision, drain the abscess, ID consult, swab for culture. patient is informed, and consent obtained for incision and drainage. Antibiotics.
--- NOTE | 2018-09-10 10:44 | PROC ---
Procedure Note Procedure: Incision and drainage of left breast. Consent obtained. Time out called. Inj. Torodol 15 mgm given, 1% lidocaine infiltrated around the areola , and medial aslect of left breast. Under sterile aseptic condition , the previous incision was opened, which was on the medial aspect of the areola. copious amount of bloody fluid with some pus drained out. the cavity was epmtied with a the neddle hoder. cavity irrigated with normal msaline, A swab obtained fro th epus and sent for culture and sensitivity. Cavith loosely packed with 1/2 inch iodoform gauza. Dressing appled.
[2018-09-10] MEDS ORDERED: ACETAMINOPHEN 1000 MG/100 ML VIAL (NON FORMULARY) IVPB ONE (11:48)
[2018-09-10] MEDS ORDERED: MORPHINE SULFATE 2 MG/ML VIAL IVPUSH ONE (11:48)
--- NOTE | 2018-09-10 12:41 | PN ---
Physical Exam: SUBJECTIVE: Patient seen and examined at bedside. Pt complaining of R breast tenderness. Denies f/c, n/v, cp, sob, urinary/bowel symptoms. OBJECTIVE: Vital Signs Temperature 98.1 F 09/10/18 10:06 Pulse Rate 72 09/10/18 10:06 Respiratory Rate 20 09/10/18 10:06 Blood Pressure 140/73 09/10/18 10:06 O2 Sat by Pulse Oximetry (%) 99 09/10/18 07:11 HEENT: No Jaundice, eye redness or discharge, PERRLA, EOMI. Normocephalic, atraumatic. External ears are normal and hearing is grossly intact. No nasal discharge. Neck: Supple, nontender. No palpable adenopathy or thyromegaly. No JVD Chest: Good effort. Clear to auscultation and percussion. Left nipple yellow discharge; 4 x 5 cm area of circumferential erythema/firmness/tender to palpation; no fluctuance or crepitus. No palpable axillary lympohadneoapthy. Right breast nipple inversion. Heart: Regular. No S3, rub or murmur Abdomen: Not distended, soft, nontender and no HSM. No rebound or guarding. Normal bowel sounds. Ext: Peripheral pulses intact. No leg edema. Skin: Warm and dry. No petechiae, rash or ecchymosis. Neuro: Alert. Oriented x3. CN 2-12 grossly intact. Sensation grossly intact in all four extremities and DTR are symmetric. Psych: Appropriate mood and affect. Good insight. CBCD WBC 8.4 K/mm3 (4.0-10.0) 09/10/18 05:40 RBC 3.65 M/mm3 (3.60-5.2) 09/10/18 05:40 Hgb 11.2 GM/dL (10.7-15.3) 09/10/18 05:40 Hct 33.6 % (32.4-45.2) D 09/10/18 05:40 MCV 92.1 fl (80-96) 09/10/18 05:40 MCHC 33.3 g/dl (32.0-36.0) 09/10/18 05:40 RDW 13.1 % (11.6-15.6) 09/10/18 05:40 Plt Count 231 K/MM3 (134-434) 09/10/18 05:40 MPV 10.8 fl (7.5-11.1) 09/10/18 05:40 CMP Sodium 141 mmol/L (136-145) 09/10/18 05:40 Potassium 3.9 mmol/L (3.5-5.1) 09/10/18 05:40 Chloride 112 mmol/L (98-107) H 09/10/18 05:40 Carbon Dioxide 23 mmol/L (21-32) 09/10/18 05:40 Anion Gap 6 MMOL/L (8-16) L 09/10/18 05:40 BUN 10.6 mg/dL (7-18) 09/10/18 05:40 Creatinine 0.6 mg/dL (0.55-1.3) 09/10/18 05:40 Calcium 7.7 mg/dL (8.5-10.1) L 09/10/18 05:40 Total Bilirubin 0.4 mg/dL (0.2-1) 09/10/18 05:40 AST 8 U/L (15-37) L 09/10/18 05:40 ALT 21 U/L (13-61) 09/10/18 05:40 Alkaline Phosphatase 48 U/L (45-117) 09/10/18 05:40 Total Protein 5.5 g/dl (6.4-8.2) L 09/10/18 05:40 Albumin 2.9 g/dl (3.4-5.0) L 09/10/18 05:40 Active Medications Sodium Chloride (Normal Saline -) 1,000 mls @ 83 mls/hr IV ASDIR KORTNEY Stop: 09/11/18 12:48 Last Admin: 09/10/18 02:17 Dose: 83 mls/hr Vancomycin HCl 1,250 mg/ (Dextrose) 250 mls @ 166.667 mls/hr IVPB Q12H KORTNEY; Protocol Ketorolac Tromethamine (Toradol Injection -) 15 mg IVPUSH Q6H PRN PRN Reason: PAIN LEVEL 6-10 Stop: 09/15/18 00:33 Last Admin: 09/10/18 10:16 Dose: 15 mg ASSESSMENT/PLAN: 32 year F with prior bilateral breast abscess s/p drainage 08/23/[address] Castillo now presenting with 2 week history of worsening L breast pain and 1 day hx of greenish discharge from L breast. #L breast abscess; s/p b/l breast abscess with I&D (last admission, recently discharged 08/24/18) -s/p I&D today by Dr. Castillo; breast abscess culture and BCx pending -Previous cultures of breast abscess +Arcanobacterium hemolyticum and +Gemella morbillorum (no sensitivities indicated) -Received Vanc and Unasyn in ED; will cont current IV abx -ID consulted; await recs -I&D by Dr Castillo in past- Consult -Will eventually need further outpatient work up (mammogram) once abscess resolves -Cont Toradol 15 Q6H IVP, Morphine 2 mg IVP x1 dose for pain -NS @83 -Repeat CBC, CMP #Ppx -DVT: early ambulation, SCDs FEN -NS @ 83 -recheck lytes in AM -Regular diet Dispo -cont to monitor on med-surg Visit type - Emergency Visit Emergency Visit: Yes ED Registration Date: 09/09/18 Care time: The patient presented to the Emergency Department on the above date and was hospitalized for further evaluation of their emergent condition. - New Patient This patient is new to me today: Yes Date on this admission: 09/10/18 - Critical Care Critical Care patient: No
[2018-09-10] MEDS ORDERED: MORPHINE SULFATE 2 MG/ML VIAL ONE (12:46)
--- NOTE | 2018-09-10 13:13 | PN ---
Progress Note (short form) - Note Progress Note: ID CONSULT DICTATED RECURRENT BREAST ABSCESS MASTITIS PENDING C/S EMPIRIC VANCOMYCIN/ ZOSYN
[2018-09-10] MEDS ORDERED: PIPERACILLIN/TAZOBACTAM 3.375 GM VIAL IVPB ONE (15:49)
[2018-09-10] MEDS ORDERED: DEXTROSE 5%-WATER - 50 ML IVPB ONE (15:49)
[2018-09-10 16:08] VITALS: BMI 30.5
[2018-09-10] MEDS ORDERED: PT OWN MED DRAWER 7, Y5N ONE (16:30)
--- NOTE | 2018-09-10 16:59 | PN ---
Teaching Attending Note Name of Resident: Ofelia Gallardo ATTENDING PHYSICIAN STATEMENT I saw and evaluated the patient. I reviewed the resident's note and discussed the case with the resident. I agree with the resident's findings and plan as documented. SUBJECTIVE:c/o L breast pain since having I&D. states prior to last month never had infection or abscess before. has not followed up with breast specialist since last hospitalization and not had mammogram. mother has frequent abscess in the axilla denies CP, SOB, fever, chills, N/V/C/D no previous pregnancies, never had OBJECTIVE: Last Vital Signs Temp Pulse Resp BP Pulse Ox 98.7 F 83 18 105/72 98 09/10/18 15:40 09/10/18 15:40 09/10/18 15:40 09/10/18 15:40 09/10/18 15:40 General NAD CV S1 S2 RRR no murmur/rub/gallop Lungs CTA B/L no wheezing/rales/rhonch Breast L breast is swollen, erythematous, gauze with dried blood noted. R breast noted to have tender area in 3oclock position (medial to nipple), very mild erythema there no fluctuance noted here or elsewhere on the breast. inverted nipples ASSESSMENT AND PLAN: 32yo F wtih PMH L breast abscess which she underwent I&D last month. was treated wiht bactrim which resolved and then pain and erythema returned is presenting with L breast abscess 1. L breast abscess with mastitis- s/p bedside I&D today. will give tylenol IV and morphine x1 for pain then can switch to toradol. will f/u Cx obtained. on empiric Vanco and zosyn. daily wound packing and dressing changes per surgery. will check A1c. HIV negative earlier this month. 2. DVT ppx- lovenox 3. case d/w boyfriend present at bedside. all questions answered. verbalized understanding and agreement with plan
[2018-09-10] MEDS: PIPERACILLIN/TAZOB 3.375 GM 3.375 GM in DEXTROSE 5%-WATER - 50 ML IVPB SCH ×2 (17:02→17:32)
--- NOTE | 2018-09-10 17:58 | CONS ---
DATE OF CONSULTATION: DATE OF DICTATION: 09/10/2018 INFECTIOUS DISEASE CONSULTATION HISTORY OF PRESENT ILLNESS: The patient is a 32-year-old female evaluated for recurrent breast abscess and cellulitis. Patient was recently hospitalized at [facility] from August 24 through August 26 with bilateral breast abscesses. She underwent incision and drainage. Wound cultures at that time were positive for Gemella and Arcanobacterium. She received a course of IV antibiotic therapy and was discharged home in a stable condition. She completed a course of oral antibiotic therapy. Patient reports that she developed recurrent erythema, warmth, and swelling of the left breast. She presented to the emergency room where she was found to have a cellulitis of the left breast as well as soft tissue abscess on sonogram. She underwent an incision and drainage at the bedside. Cultures are pending. She denies any purulent wound drainage, no discharge or bleeding from the nipple, no fever or chills. PAST MEDICAL HISTORY: Positive for prior abscess and bilateral breast abscesses. ALLERGIES: No known allergies. MEDICATION: Include Toradol. LABORATORY DATA: White count on admission: 12,000, presently 8.4, hematocrit 33.6, platelet count 231, creatinine 0.6. Urinalysis negative. PHYSICAL EXAMINATION: General: On physical examination, she is awake and alert, in no acute distress. Vital signs: Temperature 98.6, blood pressure 110/72, pulse 73 regular, respirations 20 per minute. HEENT: Sclerae anicteric. Cardiovascular: Heart sounds S1, S2. Lungs: Clear. Breast: There is an incisional wound present adjacent to the areola, left breast, with packing. There is a larger area of surrounding erythema and warmth. Right breast without evidence of cellulitis or abscess. Abdomen: Soft, nontender. Extremities: Negative for edema. IMPRESSION: 1. Recurrent breast abscess. 2. Mastitis, left breast. PLAN: Await culture results. Empiric antibiotic coverage with vancomycin and Zosyn. Surgical followup. Outpatient referral to breast surgery. Will follow. Thank you for the kind referral. LUIS MANUEL HOOKS M.D. [id number]
[2018-09-10] MEDS ORDERED: VANCOMYCIN 1 GRAM (PRE-DOCKED) 1,000 MG/250 ML BAG IVPB SCH (22:00)
[2018-09-10] MEDS ORDERED: VANCOMYCIN 1,250 MG in DEXTROSE 5%-WATER - 250 ML IVPB SCH (22:00)
[2018-09-10] MEDS: VANCOMYCIN 1 GRAM (PRE-DOCKED) 1,000 MG/250 ML BAG IVPB SCH (23:31)
[2018-09-11] MEDS: SODIUM CHLORIDE 1,000 ML IV SCH (01:06)
[2018-09-11] MEDS ORDERED: PIPERACILLIN/TAZOBACTAM 3.375 GM VIAL IVPB ONE ×3 (01:45→17:43)
[2018-09-11] MEDS ORDERED: DEXTROSE 5%-WATER - 50 ML IVPB ONE ×3 (01:46→17:43)
[2018-09-11] MEDS: PIPERACILLIN/TAZOB 3.375 GM 3.375 GM in DEXTROSE 5%-WATER - 50 ML IVPB SCH ×3 (02:17→17:55)
[2018-09-11 08:07] LABS: BLOOD UREA NITROGEN 7.3 mg/dL (7-18); CALCIUM 8.6 mg/dL (8.5-10.1); CREATININE 0.6 mg/dL (0.55-1.3); POTASSIUM 4.2 mmol/L (3.5-5.1)
[2018-09-11 08:16] LABS: HEMATOCRIT 35.4 % (32.4-45.2); HEMOGLOBIN 11.7 GM/dL (10.7-15.3); MCH 30.5 pg (25.7-33.7); MCHC 33.2 g/dl (32.0-36.0); MEAN CELL VOLUME 91.8 fl (80-96); PLATELET COUNT 247 K/MM3 (134-434); RBC 3.85 M/mm3 (3.60-5.2); WHITE BLOOD COUNT 7.6 K/mm3 (4.0-10.0)
--- NOTE | 2018-09-11 10:48 | PN ---
Physical Exam: SUBJECTIVE: Patient seen and examined at bedside. Pt complained of 6/10 pain throughout the night that was intermittent. Received Toradol x1 overnight. Still admits to L breast tenderness at site of drained abscess. Denies fever/ chills, n/v, cp, sob, abd pain, urinary/bowel symptoms. OBJECTIVE: Vital Signs Temperature 98.1 F 09/11/18 06:00 Pulse Rate 78 09/11/18 06:00 Respiratory Rate 18 09/11/18 06:00 Blood Pressure 111/66 09/11/18 06:00 O2 Sat by Pulse Oximetry (%) 98 09/10/18 21:00 HEENT: No Jaundice, eye redness or discharge, PERRLA, EOMI. Normocephalic, atraumatic. External ears are normal and hearing is grossly intact. No nasal discharge. Neck: Supple, nontender. No palpable adenopathy or thyromegaly. No JVD Chest: Good effort. Clear to auscultation and percussion. S/p I&D L nipple showing minimal drainage; 4 x 5 cm area of circumferential erythema/firmness/ tender to palpation; no fluctuance or crepitus. Right breast nipple inversion. Heart: Regular. No S3, rub or murmur Abdomen: Not distended, soft, nontender and no HSM. No rebound or guarding. Normal bowel sounds. Ext: Peripheral pulses intact. No leg edema. Skin: Warm and dry. No petechiae, rash or ecchymosis. Neuro: Alert. Oriented x3. CN 2-12 grossly intact. Sensation grossly intact in all four extremities and DTR are symmetric. Psych: Appropriate mood and affect. Good insight. CBCD WBC 7.6 K/mm3 (4.0-10.0) 09/11/18 07:00 RBC 3.85 M/mm3 (3.60-5.2) 09/11/18 07:00 Hgb 11.7 GM/dL (10.7-15.3) 09/11/18 07:00 Hct 35.4 % (32.4-45.2) 09/11/18 07:00 MCV 91.8 fl (80-96) 09/11/18 07:00 MCHC 33.2 g/dl (32.0-36.0) 09/11/18 07:00 RDW 13.0 % (11.6-15.6) 09/11/18 07:00 Plt Count 247 K/MM3 (134-434) 09/11/18 07:00 MPV 11.0 fl (7.5-11.1) 09/11/18 07:00 CMP Sodium 139 mmol/L (136-145) 09/11/18 07:00 Potassium 4.2 mmol/L (3.5-5.1) 09/11/18 07:00 Chloride 110 mmol/L (98-107) H 09/11/18 07:00 Carbon Dioxide 23 mmol/L (21-32) 09/11/18 07:00 Anion Gap 6 MMOL/L (8-16) L 09/11/18 07:00 BUN 7.3 mg/dL (7-18) 09/11/18 07:00 Creatinine 0.6 mg/dL (0.55-1.3) 09/11/18 07:00 Calcium 8.6 mg/dL (8.5-10.1) 09/11/18 07:00 Total Bilirubin 0.4 mg/dL (0.2-1) 09/10/18 05:40 AST 8 U/L (15-37) L 09/10/18 05:40 ALT 21 U/L (13-61) 09/10/18 05:40 Alkaline Phosphatase 48 U/L (45-117) 09/10/18 05:40 Total Protein 5.5 g/dl (6.4-8.2) L 09/10/18 05:40 Albumin 2.9 g/dl (3.4-5.0) L 09/10/18 05:40 Microbiology 09/10/18 10:45 Breast - Left Wound Culture - Preliminary NO GROWTH OBTAINED AFTER 24 HOURS INCUBATION, REINCUBATED. 09/09/18 20:44 Breast - Left Gram Stain - Final 09/09/18 20:44 Breast - Left Wound Culture - Preliminary Staphylococcus Coagulase Neg 09/09/18 20:44 Blood - Peripheral Venous Blood Culture - Preliminary NO GROWTH OBTAINED AFTER 24 HOURS, INCUBATION TO CONTINUE FOR 4 DAYS. 09/09/18 20:44 Blood - Peripheral Venous Blood Culture - Preliminary NO GROWTH OBTAINED AFTER 24 HOURS, INCUBATION TO CONTINUE FOR 4 DAYS. Active Medications Sodium Chloride (Normal Saline -) 1,000 mls @ 83 mls/hr IV ASDIR KORTNEY Stop: 09/11/18 12:48 Last Admin: 09/11/18 01:06 Dose: Not Given Piperacillin Sod/Tazobactam (Sod 3.375 gm/ Dextrose) 50 mls @ 100 mls/hr IVPB Q8H-IV KORTNEY; Protocol Last Admin: 09/11/18 02:17 Dose: 100 mls/hr Vancomycin HCl (Vancomycin (Pre-Docked)) 1,000 mg in 250 mls @ 166.667 mls/hr IVPB Q12H KORTNEY; Protocol Last Admin: 09/10/18 23:31 Dose: 166.667 mls/hr Ketorolac Tromethamine (Toradol Injection -) 15 mg IVPUSH Q6H PRN PRN Reason: PAIN LEVEL 6-10 Stop: 09/15/18 00:33 Last Admin: 09/10/18 21:42 Dose: 15 mg ASSESSMENT/PLAN: 32 year F with prior bilateral breast abscess s/p drainage 08/23/[address] Castillo now presenting with 2 week history of worsening L breast pain and 1 day hx of greenish discharge from L breast. #L breast abscess; s/p b/l breast abscess with I&D (last admission, recently discharged 08/24/18) -s/p I&D (09/10) by Dr. Castillo; pre-I&D breast abscess Cx +staph coag neg, post-I&D cx pending, BCx neg x2h -Previous cultures of breast abscess +Arcanobacterium hemolyticum and +Gemella morbillorum (no sensitivities indicated) -Per ID, cont Vanc/Zosyn (Day 3). Initially received Vanc/Unasyn in ED -Daily wound care -Advised to use pillows between breasts to minimize pain -Will eventually need further outpatient work up (mammogram) once abscess resolves -Cont Toradol 15 Q6H IVP PRN for pain -HIV neg last admission (08/24/18) #Pre-Diabetes; A1c 5.9% -Recommended lifestyle modifications. Weight loss/exercise/diet counseling discussed with pt to prevent further progression to diabetes. No need for oral meds at this time. Advised outpatient follow up and repeat Hgb A1c in 3 months with PCP. #Ppx -DVT: early ambulation, SCDs FEN -Oral hydration -recheck lytes in AM -Regular diet Dispo -cont to monitor on med-surg Visit type - Emergency Visit Emergency Visit: Yes ED Registration Date: 09/09/18 Care time: The patient presented to the Emergency Department on the above date and was hospitalized for further evaluation of their emergent condition. - New Patient This patient is new to me today: No - Critical Care Critical Care patient: No
--- NOTE | 2018-09-11 11:00 | PN ---
Teaching Attending Note Name of Resident: Ofelia Gallardo ATTENDING PHYSICIAN STATEMENT I saw and evaluated the patient. I reviewed the resident's note and discussed the case with the resident. I agree with the resident's findings and plan as documented. SUBJECTIVE:states pain was worse last night when sleeping. improved with pain medications. denies CP, SOB, fever, chills, N/V/C/D or excessive breast drainage. states pain in R breast subsided OBJECTIVE: Last Vital Signs Temp Pulse Resp BP Pulse Ox 98.1 F 78 18 111/66 98 09/11/18 06:00 09/11/18 06:00 09/11/18 06:00 09/11/18 06:00 09/10/18 21:00 General NAD Breast L breast is swollen, erythematous, gauze with betadine. no tendenress to R breast. Inverted nipples ASSESSMENT AND PLAN: 32yo F wtih PMH L breast abscess which she underwent I&D last month. was treated wiht bactrim which resolved and then pain and erythema returned is presenting with L breast abscess 1. L breast abscess with mastitis- s/p bedside I&D 09/10. pain is liekly worse due to positioning when sleeping. encouraged to use pillows to prop up breast so not adding pressure due to weight. cont with daily wound care per surgery. on vanco/zosyn day 2. f/u cx. pain control. 2. elevated A1c- informed of level being slightly elevated. recommended dietary changes and exercise to promote heathy living and weight loss. encourage to have repeat A1c in 3 months 2. DVT ppx- lovenox
[2018-09-11] MEDS: VANCOMYCIN 1 GRAM (PRE-DOCKED) 1,000 MG/250 ML BAG IVPB SCH ×2 (11:54→22:56)
--- NOTE | 2018-09-11 13:31 | PN ---
Progress Note, Physician - Current Medication List Current Medications: Active Medications Piperacillin Sod/Tazobactam (Sod 3.375 gm/ Dextrose) 50 mls @ 100 mls/hr IVPB Q8H-IV KORTNEY; Protocol Last Admin: 09/11/18 11:02 Dose: 100 mls/hr Vancomycin HCl (Vancomycin (Pre-Docked)) 1,000 mg in 250 mls @ 166.667 mls/hr IVPB Q12H KORTNEY; Protocol Last Admin: 09/11/18 11:54 Dose: 166.667 mls/hr Ketorolac Tromethamine (Toradol Injection -) 15 mg IVPUSH Q6H PRN PRN Reason: PAIN LEVEL 6-10 Stop: 09/15/18 00:33 Last Admin: 09/10/18 21:42 Dose: 15 mg - Objective Vital Signs: Vital Signs Temperature 98.1 F 09/11/18 11:00 Pulse Rate 75 09/11/18 11:00 Respiratory Rate 20 09/11/18 11:00 Blood Pressure 131/72 09/11/18 11:00 O2 Sat by Pulse Oximetry (%) 98 09/10/18 21:00 Labs: CBC, BMP 09/11/18 07:00 09/11/18 07:00 INR, PTT INR 1.08 (0.83-1.09) 09/10/18 05:40 Problem List - Problems (1) Breast abscess of female Code(s): N61.1 - ABSCESS OF THE BREAST AND NIPPLE Assessment/Plan Surgery: Patient is afebrile She has less pain in left breast. Dressing changed , less purulent. Culture : Staph coagulase negative, Continue antibiotics, warm soaks, dressing as needed. Abscess left breast.
[2018-09-11] MEDS: KETOROLAC TROMETHAMINE 15 MG/ML VIAL IVPUSH PRN ×2 (14:30→20:22)
--- NOTE | 2018-09-11 18:22 | PN ---
Progress Note, Physician History of Present Illness: AWAKE IN BED REPORTS LESS BREAST PAIN NO FEVER/ CHILLS WOUND C/S PRELIM SCN - Current Medication List Current Medications: Active Medications Piperacillin Sod/Tazobactam (Sod 3.375 gm/ Dextrose) 50 mls @ 100 mls/hr IVPB Q8H-IV KORTNEY; Protocol Last Admin: 09/11/18 17:55 Dose: 100 mls/hr Vancomycin HCl (Vancomycin (Pre-Docked)) 1,000 mg in 250 mls @ 166.667 mls/hr IVPB Q12H KORTNEY; Protocol Last Admin: 09/11/18 11:54 Dose: 166.667 mls/hr Ketorolac Tromethamine (Toradol Injection -) 15 mg IVPUSH Q6H PRN PRN Reason: PAIN LEVEL 6-10 Stop: 09/15/18 00:33 Last Admin: 09/11/18 14:30 Dose: 15 mg - Objective Vital Signs: Vital Signs Temperature 98.9 F 09/11/18 18:00 Pulse Rate 77 09/11/18 18:00 Respiratory Rate 20 09/11/18 18:00 Blood Pressure 142/59 L 09/11/18 18:00 O2 Sat by Pulse Oximetry (%) 98 09/10/18 21:00 Constitutional: Yes: No Distress Cardiovascular: Yes: Regular Rate and Rhythm Respiratory: Yes: CTA Bilaterally Breast(s): Yes: Other (+ L BREAST ERYTHEMA NO WOUND DRAINAGE) Labs: CBC, BMP 09/11/18 07:00 09/11/18 07:00 INR, PTT INR 1.08 (0.83-1.09) 09/10/18 05:40 Assessment/Plan S/P I&D L BREAST ABSCESS MASTITIS CONTINUE VANCOMYCIN/ ZOSYN
[2018-09-11] MEDS ORDERED: PT OWN MED DRAWER 7, Y5N ONE (20:21)
[2018-09-12] MEDS ORDERED: DEXTROSE 5%-WATER - 50 ML IVPB ONE ×2 (01:07→09:50)
[2018-09-12] MEDS ORDERED: PIPERACILLIN/TAZOBACTAM 3.375 GM VIAL IVPB ONE ×2 (01:07→09:50)
[2018-09-12] MEDS: PIPERACILLIN/TAZOB 3.375 GM 3.375 GM in DEXTROSE 5%-WATER - 50 ML IVPB SCH ×2 (02:05→10:10)
[2018-09-12] MEDS ORDERED: PT OWN MED DRAWER 7, Y5N ONE (06:58)
[2018-09-12] MEDS: KETOROLAC TROMETHAMINE 15 MG/ML VIAL IVPUSH PRN (09:53)
--- NOTE | 2018-09-12 10:07 | PN ---
Progress Note, Physician - Current Medication List Current Medications: Active Medications Piperacillin Sod/Tazobactam (Sod 3.375 gm/ Dextrose) 50 mls @ 100 mls/hr IVPB Q8H-IV KORTNEY; Protocol Last Admin: 09/12/18 02:05 Dose: 100 mls/hr Vancomycin HCl (Vancomycin (Pre-Docked)) 1,000 mg in 250 mls @ 166.667 mls/hr IVPB Q12H KORTNEY; Protocol Last Admin: 09/11/18 22:56 Dose: 166.667 mls/hr Ketorolac Tromethamine (Toradol Injection -) 15 mg IVPUSH Q6H PRN PRN Reason: PAIN LEVEL 6-10 Stop: 09/15/18 00:33 Last Admin: 09/12/18 09:53 Dose: 15 mg - Objective Vital Signs: Vital Signs Temperature 98.1 F 09/12/18 06:00 Pulse Rate 98 H 09/12/18 09:57 Respiratory Rate 20 09/12/18 09:57 Blood Pressure 135/78 09/12/18 09:57 O2 Sat by Pulse Oximetry (%) 97 09/11/18 11:05 Labs: CBC, BMP 09/11/18 07:00 09/11/18 07:00 INR, PTT INR 1.08 (0.83-1.09) 09/10/18 05:40 Problem List - Problems (1) Breast abscess of female Code(s): N61.1 - ABSCESS OF THE BREAST AND NIPPLE Assessment/Plan Surgery: Patient has less pain today. redness and swelling on medial aspect of left areola, improving. Wound irrigated and dressed. WBC is normal, Continue antibiotics, warm shower and local heat pad. Possible discharge in am.
--- NOTE | 2018-09-12 10:42 | PN ---
Progress Note, Physician History of Present Illness: AWAKE, ALERT IN BED REPORTS LESS BREAST PAIN NO FEVER/ CHILLS WOUND C/S PRELIM SCN - Current Medication List Current Medications: Active Medications Piperacillin Sod/Tazobactam (Sod 3.375 gm/ Dextrose) 50 mls @ 100 mls/hr IVPB Q8H-IV KORTNEY; Protocol Last Admin: 09/12/18 10:10 Dose: 100 mls/hr Vancomycin HCl (Vancomycin (Pre-Docked)) 1,000 mg in 250 mls @ 166.667 mls/hr IVPB Q12H KORTNEY; Protocol Last Admin: 09/11/18 22:56 Dose: 166.667 mls/hr Ketorolac Tromethamine (Toradol Injection -) 15 mg IVPUSH Q6H PRN PRN Reason: PAIN LEVEL 6-10 Stop: 09/15/18 00:33 Last Admin: 09/12/18 09:53 Dose: 15 mg - Objective Vital Signs: Vital Signs Temperature 98.1 F 09/12/18 06:00 Pulse Rate 98 H 09/12/18 09:57 Respiratory Rate 20 09/12/18 09:57 Blood Pressure 135/78 09/12/18 09:57 O2 Sat by Pulse Oximetry (%) 97 09/11/18 11:05 Constitutional: Yes: No Distress Cardiovascular: Yes: Regular Rate and Rhythm, S1, S2 Respiratory: Yes: CTA Bilaterally Breast(s): Yes: Other (DECREASED ERYTHEMA L BREAST. NO WOUND DRAINAGE) Labs: CBC, BMP 09/11/18 07:00 09/11/18 07:00 INR, PTT INR 1.08 (0.83-1.09) 09/10/18 05:40 Assessment/Plan S/P I&D L BREAST ABSCESS MASTITIS IMPROVED AWAIT FINAL WOUND C/S CONTINUE VANCOMYCIN D/C ZOSYN
[2018-09-12] MEDS: VANCOMYCIN 1 GRAM (PRE-DOCKED) 1,000 MG/250 ML BAG IVPB SCH (11:00)
--- NOTE | 2018-09-12 11:15 | PN ---
Physical Exam: SUBJECTIVE: Patient seen and examined at bedside. Pt slept well overnight. Still complains of L breast tenderness, but improved. Denies f/c, n/v, cp, sob, abd pain, urinary/bowel symptoms, drainage from breast. OBJECTIVE: Vital Signs Temperature 98.1 F 09/12/18 06:00 Pulse Rate 98 H 09/12/18 09:57 Respiratory Rate 20 09/12/18 09:57 Blood Pressure 135/78 09/12/18 09:57 O2 Sat by Pulse Oximetry (%) 97 09/11/18 11:05 HEENT: No Jaundice, eye redness or discharge, PERRLA, EOMI. Normocephalic, atraumatic. External ears are normal and hearing is grossly intact. No nasal discharge. Neck: Supple, nontender. No palpable adenopathy or thyromegaly. No JVD Chest: Good effort. Clear to auscultation and percussion. 4 x 5 cm area of circumferential erythema/firmness/tender to palpation; improved since yesterday , less erythema. no fluctuance or crepitus. Right breast nipple inversion. Heart: Regular. No S3, rub or murmur Abdomen: Not distended, soft, nontender and no HSM. No rebound or guarding. Normal bowel sounds. Ext: Peripheral pulses intact. No leg edema. Skin: Warm and dry. No petechiae, rash or ecchymosis. Neuro: Alert. Oriented x3. CN 2-12 grossly intact. Sensation grossly intact in all four extremities and DTR are symmetric. Psych: Appropriate mood and affect. Good insight. Active Medications Vancomycin HCl (Vancomycin (Pre-Docked)) 1,000 mg in 250 mls @ 166.667 mls/hr IVPB Q12H KORTNYE; Protocol Last Admin: 09/11/18 22:56 Dose: 166.667 mls/hr Ketorolac Tromethamine (Toradol Injection -) 15 mg IVPUSH Q6H PRN PRN Reason: PAIN LEVEL 6-10 Stop: 09/15/18 00:33 Last Admin: 09/12/18 09:53 Dose: 15 mg IMAGING: * L breast U/S: 4.3 x 2.5 cm abscess/phlegmon in retroareolar region of L breast. BIRAD 2. ASSESSMENT/PLAN: 32 year F with prior bilateral breast abscess s/p drainage 08/23/[address] Castillo now presenting with 2 week history of worsening L breast pain and 1 day hx of greenish discharge from L breast. #L breast abscess; s/p b/l breast abscess with I&D (last admission, recently discharged 08/24/18) -s/p I&D (09/10) by Dr. Castillo; pre-I&D breast abscess Cx +staph coag neg, post-I&D cx neg x48h, BCx neg -Per ID, d/c Zosyn and cont Vanc (Day 4); vanc trough ordered. Await final C/S. -Per surg, daily wound care, warm shower, local heat pad, cont IV abx -Advised to use pillows between breasts to minimize pain -Will eventually need further outpatient work up (mammogram) once abscess resolves -Cont Toradol 15 Q6H IVP PRN for pain -HIV neg last admission (08/24/18) #Pre-Diabetes; A1c 5.9% -Recommended lifestyle modifications. Weight loss/exercise/diet counseling discussed with pt to prevent further progression to diabetes. No need for oral meds at this time. Advised outpatient follow up and repeat Hgb A1c in 3 months with PCP. #Ppx -DVT: early ambulation, SCDs FEN -Oral hydration -recheck lytes in AM -Regular diet Dispo -cont to monitor on med-surg Visit type - Emergency Visit Emergency Visit: Yes ED Registration Date: 09/09/18 Care time: The patient presented to the Emergency Department on the above date and was hospitalized for further evaluation of their emergent condition. - New Patient This patient is new to me today: No - Critical Care Critical Care patient: No
--- NOTE | 2018-09-12 13:32 | PN ---
Teaching Attending Note Name of Resident: Ofelia Gallardo ATTENDING PHYSICIAN STATEMENT I saw and evaluated the patient. I reviewed the resident's note and discussed the case with the resident. I agree with the resident's findings and plan as documented. SUBJECTIVE:continues to have L breast pain but significantly improved since yesterday. was able to sleep last night. denies Cp, SOB, fever, chills OBJECTIVE: Last Vital Signs Temp Pulse Resp BP Pulse Ox 98.1 F 98 H 20 135/78 97 09/12/18 06:00 09/12/18 09:57 09/12/18 09:57 09/12/18 09:57 09/11/18 11:05 General NAD Breast L breast erythematous below the areola. area remains tender but is no longer warm or edematous. no active drainage from surgical incision. ASSESSMENT AND PLAN: 32yo F wtih PMH L breast abscess which she underwent I&D last month. was treated wiht bactrim which resolved and then pain and erythema returned is presenting with L breast abscess 1. L breast abscess with mastitis- s/p bedside I&D 09/10. clinically improved. vanco trough low and vanco increased. zosyn d/c. cx obtained are negative. will cont to watch for improvement in lesion. ID and surgery on board. pain control. 2. elevated A1c- informed of level being slightly elevated. recommended dietary changes and exercise to promote heathy living and weight loss. encourage to have repeat A1c in 3 months 2. DVT ppx- lovenox
[2018-09-12] MEDS: VANCOMYCIN HCL 1,250 MG in DEXTROSE 5%-WATER - 250 ML IVPB SCH (13:36)
[2018-09-13] MEDS: VANCOMYCIN HCL 1,250 MG in DEXTROSE 5%-WATER - 250 ML IVPB SCH ×2 (01:06→14:29)
[2018-09-13] MEDS: KETOROLAC TROMETHAMINE 15 MG/ML VIAL IVPUSH PRN ×2 (01:16→09:50)
--- NOTE | 2018-09-13 10:26 | PN ---
Teaching Attending Note Name of Resident: Ofelia Gallardo ATTENDING PHYSICIAN STATEMENT I saw and evaluated the patient. I reviewed the resident's note and discussed the case with the resident. I agree with the resident's findings and plan as documented. SUBJECTIVE:states pain has resolved. denies Cp, SOB, fever, chills, N/v/C/d OBJECTIVE: Last Vital Signs Temp Pulse Resp BP Pulse Ox 98.2 F 75 20 152/78 97 09/13/18 06:00 09/13/18 06:00 09/13/18 06:00 09/13/18 06:00 09/11/18 11:05 General NAD Breast L breast surgical incision with some drainage noted which can be expressed wih minimal pressure. erythema is mostly resolved at this time. not warm or tender. ASSESSMENT AND PLAN: 32yo F wtih PMH L breast abscess which she underwent I&D last month. was treated wiht bactrim which resolved and then pain and erythema returned is presenting with L breast abscess 1. L breast abscess with mastitis- s/p bedside I&D 09/10. clinically improved. noted to have some drainage with manipulation. overall looks improved cellulitic area mostly resolved. will reach out surgery about dispo planning. inform him of drainage and obtain wound care recommendations. f/u with ID about abx selection. will need surgical follow up as outpaitent. ID and surgery on board. pain control. 2. elevated A1c- informed of level being slightly elevated. recommended dietary changes and exercise to promote heathy living and weight loss. encourage to have repeat A1c in 3 months 2. DVT ppx- lovenox 3. anticipate discharge later today
--- NOTE | 2018-09-13 13:56 | PN ---
Progress Note, Physician History of Present Illness: AWAKE, ALERT IN BED NO C/O BREAST PAIN NO FEVER/ CHILLS WOUND C/S S. EPI - Current Medication List Current Medications: Active Medications Vancomycin HCl 1,250 mg/ (Dextrose) 250 mls @ 166.667 mls/hr IVPB Q12H KORTNEY; Protocol Last Admin: 09/13/18 01:06 Dose: 166.667 mls/hr Ketorolac Tromethamine (Toradol Injection -) 15 mg IVPUSH Q6H PRN PRN Reason: PAIN LEVEL 6-10 Stop: 09/15/18 00:33 Last Admin: 09/13/18 09:50 Dose: 15 mg - Objective Vital Signs: Vital Signs Temperature 98.6 F 09/13/18 10:00 Pulse Rate 76 09/13/18 10:00 Respiratory Rate 20 09/13/18 10:00 Blood Pressure 134/76 09/13/18 10:00 O2 Sat by Pulse Oximetry (%) 97 09/11/18 11:05 Constitutional: Yes: No Distress Cardiovascular: Yes: Regular Rate and Rhythm, S1, S2 Respiratory: Yes: CTA Bilaterally Musculoskeletal: Yes: Other (L BREAST ERYTHEMA NEARLY ALL RESOLVED. NO SURGICAL WOUND DRAINAGE) Labs: CBC, BMP 09/11/18 07:00 09/11/18 07:00 INR, PTT INR 1.08 (0.83-1.09) 09/10/18 05:40 Assessment/Plan S/P I&D L BREAST ABSCESS MASTITIS NEARLY RESOLVED SUBSTITUTE LEVAQUIN 500MG PO QD 7D OUTPATIENT SURGICAL F/U
[2018-09-13 14:15] VITALS: BP 128/73; PULSE 78; TEMP 98
--- NOTE | 2018-09-13 16:02 | DS ---
Physical Exam: SUBJECTIVE: Patient seen and examined at bedside. No acute events overnight. OBJECTIVE: Vital Signs Period Temp Pulse Resp BP Sys/Meraz Pulse Ox Last 24 Hr 98 F-98.7 F 75-78 20-20 128-152/73-87 PHYSICAL EXAM HEENT: No Jaundice, eye redness or discharge, PERRLA, EOMI. Normocephalic, atraumatic. External ears are normal and hearing is grossly intact. No nasal discharge. Neck: Supple, nontender. No palpable adenopathy or thyromegaly. No JVD Chest: Good effort. Clear to auscultation and percussion. 4 x 5 cm area of circumferential erythema/firmness/tender to palpation; improved since yesterday , less erythema. no fluctuance or crepitus. Right breast nipple inversion. Heart: Regular. No S3, rub or murmur Abdomen: Not distended, soft, nontender and no HSM. No rebound or guarding. Normal bowel sounds. Ext: Peripheral pulses intact. No leg edema. Skin: Warm and dry. No petechiae, rash or ecchymosis. Neuro: Alert. Oriented x3. CN 2-12 grossly intact. Sensation grossly intact in all four extremities and DTR are symmetric. Psych: Appropriate mood and affect. Good insight. LABS HOSPITAL COURSE: Date of Admission:09/09/18 IMAGING: * L breast U/S: 4.3 x 2.5 cm abscess/phlegmon in retroareolar region of L breast. BIRAD 2. 32 year F with prior bilateral breast abscess s/p drainage 08/23/[address] Castillo presented with 2 week history of worsening L breast pain and 1 day hx of greenish discharge from L breast found to have a L breast abscess. Upon initial presentation, pt was found to have erythema and redness in the L breast. She was given empiric IV Vanc/Zosyn. Breast wound cultures were obtained that showed +Staph epidermidis. L breast u/s was done that showed a 4.3x2.5cm abscess /phlegmon in the retroareolar region of L breast. Pt was seen by surg and underwent a bedside I&D. She was further monitored in the hospital and was seen by ID. Per ID eval, Zosyn was discontinued and remained on Vancomycin. Over the course of pt's hospital stay, her symptoms of breast pain improved. She was advised to follow up with her surgeon as an outpatient for routine evaluation of her breast abscess. Additionally, she was advised to follow up with her PCP as well as breast surgeon. Pt was instructed to obtain a mammogram after full resolution of her abscess. Upon discharge, she was prescribed PO Levaquin. Date of Discharge: 09/13/18 Minutes to complete discharge: 35 Discharge Summary Reason For Visit: ABSCESS OF FEMALE BREAST Current Active Problems Breast abscess of female (Acute) Condition: Good - Instructions Diet, Activity, Other Instructions: You were seen in the hospital for a left breast tenderness and redness. A breast ultrasound was done that confirmed an abscess. During your stay, you were seen by the surgeon who drained the abscess. You were started on IV antibiotics. Additionally, you were found to have a Hemoglobin A1c of 5.9, a pre-diabetic range. MEDICATIONS We have made the following additions to your medication regimen: You will need to take antibiotics for 7 more days starting 09/14. Please take 1 tablet of Levaquin daily. Stop taking it after your last dose on 09/20. RECOMMENDATIONS Due to your Hemoglobin A1c, you are in the pre-diabetes stage. In order to prevent worsening of this value into the diabetic range, it is important that you lose weight, exercise, and avoid carbohydrates. Keep the wound dressed with only a band-aid. Warm showers and local heat pads. FOLLOW UP Please follow up with your surgeon, Dr. Castillo, within 1-2 weeks for routine evaluation of your abscess. Please follow up with your primary care physician, Dr. Obrien, within 1 week. You will need to have a repeat Hemoglobin A1c in 3 months for further monitoring of potential progression of diabetes. Please follow up with your breast surgeon. If you experience worsening breast pain, redness, tenderness or discharge, persistent fever/chills, or other associated symptoms, please proceed to your nearest emergency room immediately. Referrals: [facility] [place] [Provider Group] Cristiano Obrien MD [Staff Physician] - Jj Castillo MD [Staff Physician] - 2 Weeks Disposition: HOME - Home Medications Comprehensive Discharge Medication List: Ambulatory Orders levoFLOXacin [Levaquin -] 500 mg PO DAILY #7 tablet 09/13/18 This patient is new to me today: No Emergency Visit: Yes ED Registration Date: 09/09/18 Care time: The patient presented to the Emergency Department on the above date and was hospitalized for further evaluation of their emergent condition. Critical Care patient: No - Discharge Referral Referred to [facility] No
== END 2018-09-13 16:57 | disposition home or self-care (01) | DRG 385 ==
LOC: JER 17:50 → JERFT 17:50 → JERBED 20:39 → J5S 09-10 14:59
PROVIDERS: ADMIT Internal Medicine; ATTEND Internal Medicine
PROC: 0H9U3ZX Drainage of Left Breast, Percutaneous Approach, Diagnostic (ICD-10-PCS; principal; 2018-09-10)
DX: N61.1 Abscess of the breast and nipple (principal); B95.7 Other staphylococcus as the cause of diseases classified elsewhere; F12.10 Cannabis abuse, uncomplicated; Z87.891 Personal history of nicotine dependence; Z80.0 Family history of malignant neoplasm of digestive organs
CPT/HCPCS: 36415; 76641-TC-LT; 80048; 80053; 81003; 83036; 83735; 84100; 84703; 85025; 85027; 85610; 85730; 86850; 86900; 86901; 87040; 87070; 87077; 87186; 87205; 93005; 93010; 99285-25; G0480; J7030

== ENCOUNTER 2019-04-14 22:19 | Emergency (ER) | payer OTHER ==
[2019-04-14 22:37] VITALS: BP 116/62; PULSE 83; TEMP 97.9; BMI 30.1
[2019-04-15] MEDS ORDERED: ACETAMINOPHEN 325 MG TABLET (FP) PO ONE (00:53)
[2019-04-15] MEDS ORDERED: ACETAMINOPHEN 325 MG TABLET (FP) ONE (00:59)
[2019-04-15 01:09] LABS: HEMATOCRIT 37.7 % (32.4-45.2); HEMOGLOBIN 12.7 GM/dL (10.7-15.3); MCH 31.4 pg (25.7-33.7); MCHC 33.6 g/dl (32.0-36.0); MEAN CELL VOLUME 93.3 fl (80-96); MEAN PLT VOLUME 11.3 fl (7.5-11.1); PLATELET COUNT 228 K/MM3 (134-434); RBC 4.04 M/mm3 (3.60-5.2); RDW 12.9 % (11.6-15.6)
--- NOTE | 2019-04-15 01:12 | PDOC ---
Attending Attestation - Resident Resident Name: LesterMike birch - ED Attending Attestation I have performed the following: I have examined & evaluated the patient, The case was reviewed & discussed with the resident, I agree w/resident's findings & plan - HPI HPI: 04/15/19 03:15 see resident hpi - Physicial Exam PE: 04/15/19 03:15 see resident exam - Medical Decision Making 04/15/19 33-year-old female with pain and swelling, localized to the left breast Patient has history of multiple breast abscesses in the past that required drainage and failed outpatient antibiotics Based on previous cultures will DC on Levaquin Case discussed with our on-call surgeon by the emergency department resident who states she does not take Medicaid for outpatient visits Case discussed via the [facility] transfer line with Dr. Hanks covering general surgery who was gracious enough to give information regarding follow-up Outpatient follow-up at [facility], referral given to patient to call Dr. Saldivar
[2019-04-15 01:31] LABS: ALBUMIN 3.6 g/dl (3.4-5.0); BILIRUBIN,TOTAL 0.2 mg/dL (0.2-1); BLOOD UREA NITROGEN 10.8 mg/dL (7-18); CALCIUM 9.2 mg/dL (8.5-10.1); CREATININE 0.7 mg/dL (0.55-1.3); POTASSIUM 3.9 mmol/L (3.5-5.1); TOT PROT 6.6 g/dl (6.4-8.2)
--- NOTE | 2019-04-15 02:04 | PDOC ---
History of Present Illness - General Chief Complaint: Pain Stated Complaint: BREAST PAIN Time Seen by Provider: 04/15/19 00:41 History Source: Patient Exam Limitations: No Limitations - History of Present Illness Initial Comments: 04/15/19 01:58 Patient is 33F with history of breast abscess (managed by Dr Castillo, August 2018) here today with R breast mass that she is concerned for another possible abscess. Patient reports a mass that she first noticed at 9 o'clock on L breast , approximately 1 inch from the areola. Denies fevers, redness. Endorses a mild pain. She states that she is concerned due to a prior abscess requiring surgery and hospital admission, but states that this hasn't been the same in regards to pain and redness. Denies fevers, chills, nausea, vomiting. Denies chest pain and shortness of breath. Denies abdominal pain. LMP 3 weeks ago. Past History - Past Medical History Allergies/Adverse Reactions: Allergies Allergy/AdvReac Type Severity Reaction Status Date / Time No Known Allergies Allergy Verified 09/09/18 17:59 Home Medications: Ambulatory Orders levoFLOXacin [Levaquin -] 500 mg PO DAILY #7 tablet 09/13/18 levoFLOXacin [Levaquin -] 500 mg PO DAILY #10 tablet 04/15/19 Anemia: No Asthma: No Cancer: No Cardiac Disorders: No CVA: No COPD: No CHF: No Dementia: No Diabetes: No GI Disorders: No Disorders: No HTN: No Hypercholesterolemia: No Liver Disease: No Seizures: No Thyroid Disease: No - Surgical History Abdominal Surgery: No Appendectomy: No Cardiac Surgery: No Cholecystectomy: No GI Surgery: No Lung Surgery: No Neurologic Surgery: No Orthopedic Surgery: No - Immunization History Immunization Up to Date: No - Psycho Social/Smoking Cessation Hx Smoking History: Never smoked Have you smoked in the past 12 months: No If you are a former smoker, when did you quit?: 2014 Information on smoking cessation initiated: No Hx Alcohol Use: Yes Drug/Substance Use Hx: Yes Substance Use Type: Marijuana Hx Substance Use Treatment: No Review of Systems - Review of Systems Able to Perform ROS?: Yes Comments:: 04/15/19 02:02 GENERAL/CONSTITUTIONAL: No fever or chills. No weakness. HEAD, EYES, EARS, NOSE AND THROAT: No change in vision. No ear pain or discharge. No sore throat. CARDIOVASCULAR: No chest pain or shortness of breath RESPIRATORY: No cough, wheezing, or hemoptysis. GASTROINTESTINAL: No nausea, vomiting, diarrhea or constipation. GENITOURINARY: No dysuria, frequency, or change in urination. MUSCULOSKELETAL: No joint or muscle swelling or pain. No neck or back pain. SKIN: No rash NEUROLOGIC: No headache, vertigo, loss of consciousness, or change in strength/ sensation. ALLERGIC/IMMUNOLOGIC: No hives or skin allergy. *Physical Exam - Vital Signs Last Vital Signs Temp Pulse Resp BP Pulse Ox 97.9 F 83 18 116/62 100 04/14/19 22:34 04/14/19 22:34 04/14/19 22:34 04/14/19 22:34 04/14/19 22:34 - Physical Exam 04/15/19 02:02 GENERAL: Awake, alert, and fully oriented, in no acute distress L Breast: 1cm mobile mass, firm, nontender. No redness, no fluctuance. At 9 o' clock 1 inch from areola. HEAD: No signs of trauma, normocephalic, atraumatic EYES: PERRLA, EOMI, sclera anicteric, conjunctiva clear ENT: Auricles normal inspection, hearing grossly normal, nares patent, oropharynx clear without exudates. Moist mucosa NECK: Normal ROM, supple, no lymphadenopathy, JVD, or masses LUNGS: No distress, speaks full sentences, clear to auscultation bilaterally HEART: Regular rate and rhythm, normal S1 and S2, no murmurs, rubs or gallops, peripheral pulses normal and equal bilaterally. ABDOMEN: Soft, nontender, normoactive bowel sounds. No guarding, no rebound. No masses EXTREMITIES: Normal inspection, Normal range of motion, no edema. No clubbing or cyanosis. NEUROLOGICAL: Cranial nerves II through XII grossly intact. Normal speech, normal gait, no focal sensorimotor deficits SKIN: Warm, Dry, normal turgor, no rashes or lesions noted. ED Treatment Course - LABORATORY CBC & Chemistry Diagram: 04/15/19 00:58 04/15/19 00:58 - ADDITIONAL ORDERS Additional order review: Laboratory Results 04/15/19 04/15/19 00:58 00:58 Sodium 141 Potassium 3.9 Chloride 108 H Carbon Dioxide 26 Anion Gap 7 L BUN 10.8 Creatinine 0.7 Est GFR (CKD-EPI)AfAm 131.02 Est GFR (CKD-EPI)NonAf 113.04 Random Glucose 89 Calcium 9.2 Total Bilirubin 0.2 AST 7 L ALT 27 Alkaline Phosphatase 69 Total Protein 6.6 Albumin 3.6 Serum , Qual Negative 04/15/19 00:58 RBC 4.04 MCV 93.3 MCHC 33.6 RDW 12.9 MPV 11.3 H - RADIOLOGY Radiology Studies Ordered: Category Date Time Status BREAST US LEFT COMP NO BIRAD [US] Stat Ultrasound 04/15/19 00:53 Taken - Medications Given in the ED: ED Medications Discontinued Medications Generic Name Dose Route Start Last Admin Trade Name Freq PRN Reason Stop Dose Admin Acetaminophen 650 mg 04/15/19 00:53 04/15/19 01:00 Tylenol - PO 04/15/19 00:54 650 mg ONCE ONE Administration Medical Decision Making - Medical Decision Making 04/15/19 02:03 Patient is 33F with 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 DDx also includes, but is not limited to: breast abcess, breast cancer. Vitals normal and stable. Will evaluate with labs, ultrasound. Not . Likely discharge. 04/15/19 02:04 Preg negative CBC shows wbc of 12, otherwise normal. CMP reassuring. Pending US results. 04/15/19 02:08 US shows 'possible developing abscess' measuring 1.7x1.8x1.6cm. Dr Castillo paged. 04/15/19 02:31 Dr Castillo office has closed, not practicing per his call service. Dr Genao paged. 04/15/19 03:08 Case d/w Dr Genao, suggests starting on levaquin given prior treatment history. Will start abx today. Case d/w Dr Hanks, will have patient follow up with Dr Saldivar at Follow up set up with multiple sources, including [facility]. Return precautions and importance of follow up stressed. Discharge - Discharge Information Problems reviewed: Yes Clinical Impression/Diagnosis: Breast abscess Condition: Good Disposition: HOME - Admission No - Additional Discharge Information Prescriptions: levoFLOXacin [Levaquin -] 500 mg PO DAILY #10 tablet - Follow up/Referral Referrals: Chris Rascon MD [Staff Physician] - Chad Genao MD [Staff Physician] - [facility] [place] [Provider Group] - Patient Discharge Instructions Additional Instructions: Please follow up with Dr Saldivar at [facility] tomorrow by calling [phone] Please return if you have any new, worsening or concerning symptoms, especially fever, increasing pain and increasing redness. You may also follow up with one of the surgeons below. You need a primary care doctor as well. Please follow up with the [facility] listed below. - Post Discharge Activity Work/Back to School Note: Back to Work
== END 2019-04-15 03:25 | disposition home or self-care (01) ==
LOC: JER 22:19
DX: N61.1 Abscess of the breast and nipple (principal)
CPT/HCPCS: 36415; 76641-TC-LT; 80053; 84703; 85027; 99282-25